=== PATIENT | female | born 1945 | race Caucasian/White ===

== ENCOUNTER 2016-11-25 18:49 | Inpatient (IN) | payer OTHER ==
[~2016-11-25] VITALS: Ht 162.6 cm; Wt 81.6 kg
--- NOTE | ~2016-11-25 | H ---
[facility] [place] [address] HISTORY AND PHYSICAL Name: SUMI GATICA Room #: 451-P [facility] IN M.R.#: [id number] Admission: 11/25/16 Attend Phys: Benita Gonzalez MD Discharge: 11/29/16 Date of : 41 Report #: [id number] THIS REPORT FOR: //name// CC: Benita Gonzalez DATE OF SERVICE: 11/25/2016 CHIEF COMPLAINT: Decreased level of consciousness. HISTORY OF PRESENT ILLNESS: The patient is a 71-year-old female who resides at [facility]. At baseline, she is ambulatory with a walker, oriented times 3 with chronic pain in her lower extremities. She was doing relatively well the morning of admission; however, that evening, she was found to have decreased level of consciousness and a fever of 101. She was brought to [facility] emergency department evaluation where workup revealed findings consistent with acute cystitis and early sepsis with acute encephalopathy, fever, tachycardia and leukocytosis. She was started on IV antibiotics. She was also found to have hemoglobin 7.2 and was transfused with 2 units of packed red cells. She was started on IV fluids. She has been admitted for further medical management. PAST MEDICAL HISTORY: Chronic kidney disease stage III with baseline BUN of about 40, creatinine about 2, diabetes mellitus type 2 with neuropathy, hypertension, atrial fibrillation, history of lower GI bleed, but reported negative upper and lower endoscopy as well as videoscope, chronic dependent edema, iron deficiency anemia, and hypothyroid. ALLERGIES: No known drug allergies. MEDICATIONS: Lasix 80 mg daily, Levemir 15 units subq b.i.d., lispro 12 units t.i.d., triamcinolone cream applied to affected areas twice a day, levothyroxine 25 mcg daily, Amitiza 24 mcg b.i.d., MiraLax 17 grams b.i.d., probiotic one tablet b.i.d., albuterol nebulized treatments q.i.d., Protonix 40 mg daily, Zofran 4 mg q. 6 hours p.r.n., nitroglycerin 0.5 mg sublingual every 5 minutes as needed, Lidoderm patch 5% applied topically to her low back on the morning ____, gabapentin 400 mg t.i.d., ferrous sulfate 325 mg b.i.d., Cardizem-CD 120 mg daily, Plavix 75 mg daily, Lipitor 20 mg at bedtime, vitamin D 1000 units daily and aspirin 81 mg daily. FAMILY HISTORY: Noncontributory. SOCIAL HISTORY: She is , resides at [facility] and does not use tobacco or alcohol. REVIEW OF SYSTEMS: GENERAL: She is able to feed herself with occasional complaints of [address] [address] HISTORY AND PHYSICAL Name: SUMI GATICA Room #: 451-P DIS IN M.R.#: [id number] Admission: 11/25/16 Attend Phys: Benita Gonzalez MD Discharge: 11/29/16 Date of : 41 Report #: [id number] extremity pain. HEENT: Negative. PULMONARY: Denies cough or shortness of breath. CARDIOVASCULAR: Has chronic edema, but no chest pains or palpitations. GASTROINTESTINAL: Negative. GENITOURINARY: Negative. MUSCULOSKELETAL: At baseline, she is ambulatory with a walker and has pain in her lower legs. PHYSICAL EXAMINATION: GENERAL: The patient is a frail, elderly female lying in bed in no apparent distress. VITAL SIGNS: Reveal temperature 99.9, pulse of 100, respiratory rate 22, blood pressure 132/49. HEENT: Head is normocephalic, atraumatic. Pupils are equal and reactive. Extraocular muscles are intact. Oropharynx is moist. NECK: Supple. Trachea midline. LUNGS: Grossly clear to auscultation. CARDIOVASCULAR: Irregularly irregular. ABDOMEN: Soft, nontender, nondistended with normoactive bowel sounds. SKIN: Warm and dry. Turgor adequate. LYMPHATICS: No cervical or axillary lymphadenopathy. NEUROLOGIC: She is awake, alert, oriented to self, but recognized me as her physician. She has no focal neurologic deficit or lateralizing signs. MUSCULOSKELETAL: Reveals diminished, but equal and symmetric strength throughout. ____ noted. 1+ edema in both upper and lower extremities. ASSESSMENT: 1. Sepsis with fever, tachycardia, leukocytosis and acute encephalopathy. 2. Acute encephalopathy, most likely due to acute infection. 3. Acute cystitis. LABORATORY DATA: On her labs, mentioned that her BUN is 66, creatinine is 2.5, glucose is 200. BNP is 7079, which is about baseline for her. C-reactive protein is 36.9. INR is 1.1. WBC 11.3, hemoglobin 7.2, hematocrit 21.4. The urinalysis shows blood 3+, leukocyte esterase 2+, WBC many, bacteria many, RBC few. ASSESSMENT: 1. Sepsis with fever, tachycardia, leukocytosis and acute encephalopathy. 2. Acute encephalopathy, most likely due to acute infection. 3. Acute cystitis. 4. Acute blood loss anemia from recent dental extraction. 5. Generalized anasarca after being transfused and receiving IV fluids. 6. Chronic kidney disease stage 3. 7. Diabetes mellitus type [address] [place] [address] HISTORY AND PHYSICAL Name: SUMI GATICA Room #: 451-P [facility] IN M.R.#: [id number] Admission: 11/25/16 Attend Phys: Benita Gonzalez MD Discharge: 11/29/16 Date of : 41 Report #: [id number] 8. Hypertension. 9. Chronic atrial fibrillation. 10. Hypothyroidism. PLAN: Admission. We will discontinue IV fluids at this time and will give IV Lasix given findings of general anasarca, will continue Merrem, we will follow up urine and blood culture, we will initiate physical therapy, we will resume home medications except for aspirin and Plavix, we will give heparin for DVT prophylaxis. Continue Merrem. We will follow her labs and start sliding scale insulin with Accu-Cheks q.i.d. <ELECTRONICALLY SIGNED> By: Benita Gonzalez MD 12/31/16 1933 1025 1313 Benita Gonzalez MD /nt
--- NOTE | ~2016-11-25 | EKG ---
[address] [address] [facility] [place] [address] ELECTROCARDIOGRAM REPORT Name: SUMI GATICA Room #: 451-P ADM IN M.R.#: [id number] Admission: 11/25/16 Attend Phys: Benita Gonzalez MD Discharge: Date of : 41 Report #: [id number] THIS REPORT FOR: //name// [facility] ED Test Date: 2016-11-25 Test Time: 19:05:26 Pat Name: SUMI GATICA Department: Room: [facility] Gender: F Plastic Joint Maker: MZOOK : 1945 Requested By: Manas Teague Order Number: [id number] MD: Jamie Justin Measurements Intervals [place] Rate: 102 P: [place]: QRS: 86 QRSD: 83 T: -88 QT: 433 QTc: 565 Interpretive Statements Atrial fibrillation Borderline low voltage, extremity leads Nonspecific ST and T wave abnormality No previous ECG available for comparison Electronically Signed On 11-29-2016 8:09:46 TAB CARD PRESS OPERATOR by Jamie Justin [email or web address] <ELECTRONICALLY SIGNED> By: Jamie Justin MD, [facility] 11/29/16 0809 D: 12/1904 04 Jamie Justin MD, FACC /EPI
[~2016-11-25 18:49] MED LIST: LASIX 80 MG TAB80 MG PO
[2016-11-25 18:51] VITALS: BP 114/79
[2016-11-25 19:17] LABS: URINE BILIRUBIN NEGATIVE (Negative); URINE BLOOD 3+ (Negative); URINE COLOR YELLOW; URINE GLUCOSE-RANDOM* NEGATIVE (Negative); URINE KETONES NEGATIVE (Negative); URINE NITRITE NEGATIVE (Negative); URINE PROTEIN (DIPSTICK) TRACE (Negative); URINE UROBILINOGEN 0.2 E.U./dl (0.2-1.0)
[2016-11-25 19:22] LABS: SQUAMOUS 0-3 Few /LPF (0-3); URINE WBC >25 Many /HPF (0-5)
[2016-11-25 19:23] LABS: BACTERIA >30 Many /HPF (None Seen); CASTS None Seen /LPF (None Seen); CRYSTALS None Seen /LPF (None Seen); URINE RBC 3-10 Few /HPF (0-2)
[2016-11-25 19:40] LABS: BASOPHILS 0.1 % (0.0-2.0); MCV 90.4 fL (80.0-100.0)
[2016-11-25 19:42] LABS: EOSINOPHILS 0.7 % (0.0-3.0); HEMATOCRIT 21.4 % (37.0-47.0); MCH 30.5 pg (26.0-34.0); MCHC 33.7 % (28.0-37.0); MONOCYTES 4.7 % (1.0-8.0); PLATELET COUNT 183 thou/uL (150-400); POLYS 88.5 % (36.0-66.0); RBC 2.37 mil/uL (4.20-5.00); RDW 16.6 % (10.5-14.5); WBC 11.3 thou/uL (4.0-11.0)
[2016-11-25 19:44] LABS: MANUAL DIFF NO
[2016-11-25 19:45] LABS: HEMOGLOBIN 7.2 gm/dL (12.0-15.0)
[2016-11-25 19:52] LABS: ANION GAP 11 mmol/L (7-16); BUN 56 mg/dL (7-18); CALCIUM 8.4 mg/dL (8.5-10.1); CHLORIDE 103 mmol/L (98-107); CO2 23 mmol/L (21-32); CREATININE 2.5 mg/dL (0.6-1.3); GLUCOSE 111 mg/dL (70-99); POTASSIUM 4.2 mmol/L (3.5-5.1); SODIUM 137 mmol/L (136-145)
[2016-11-25 20:05] LABS: ALBUMIN 3.4 g/dL (3.4-5.0); ALKALINE PHOSPHATASE 126 U/L (46-116); MAGNESIUM 2.4 mg/dL (1.8-2.4); NT-PRO BRAIN NAT PEPTIDE 7079 pg/mL (<300); SGOT 10 U/L (15-37); SGPT 10 U/L (30-65); TOTAL BILIRUBIN 0.4 mg/dL (<0.1-1.0); TOTAL PROTEIN 6.5 g/dL (6.4-8.2); TROPONIN-I < 0.04 ng/mL (<0.04-0.07)
[2016-11-25 20:11] LABS: CK-MB MASS 0.9 ng/mL (<0.5-3.6)
[2016-11-25] MEDS ORDERED: ALBUTEROL2.5 MG/0.5 INH (20:31)
[2016-11-25] MEDS ORDERED: ALPHAGAN P10 ML OPHTHALMIC (20:32)
[2016-11-25] MEDS ORDERED: AMITIZA 24 MCG24 MC1 PO (20:33)
[2016-11-25] MEDS ORDERED: ANECREAM 4% KI1 EACH TP (20:34)
[2016-11-25] MEDS ORDERED: LIORESAL 10 MG10 MG PO (20:34)
[2016-11-25] MEDS ORDERED: ASPIR 8181 MG PO (20:34)
[2016-11-25] MEDS ORDERED: PLAVIX 75 MG TA75 M1 PO (20:36)
[2016-11-25] MEDS ORDERED: IRON325 PO (20:36)
[2016-11-25] MEDS ORDERED: BETIMOL15 ML OPHTHALMIC (20:36)
[2016-11-25] MEDS ORDERED: CARDIZEM CD120 MG PO (20:36)
[2016-11-25] MEDS ORDERED: VITAMIN D1000 UNI1 PO (20:36)
[2016-11-25] MEDS ORDERED: GLYCOLAX255 GM PO (20:37)
[2016-11-25] MEDS ORDERED: GABAPENTIN 100100 MG PO (20:37)
[2016-11-25] MEDS ORDERED: HUMALOG100 UNIT/1 SUBQ (20:38)
[2016-11-25] MEDS ORDERED: HYDROXYZINE HCL25 M1 PO (20:39)
[2016-11-25] MEDS ORDERED: HYDROCODONE-AP1 EAC6 PO (20:39)
[2016-11-25] MEDS ORDERED: LASIX 80 MG TAB80 MG PO (20:40)
[2016-11-25] MEDS ORDERED: LEVEMIR SUBQ (20:40)
[2016-11-25] MEDS ORDERED: LEVOTHYROXINE0.05 MG PO (20:41)
[2016-11-25] MEDS ORDERED: LIDODERM 5%1 PATC1 TRANSDERM (20:41)
[2016-11-25] MEDS ORDERED: LIPITOR 20 MG T20 M1 PO (20:41)
[2016-11-25] MEDS ORDERED: CLOTRIMAZOLE-BE15 GM TOP (20:43)
[2016-11-25] MEDS ORDERED: MILK OF MA2400 MG/10 PO (20:44)
[2016-11-25] MEDS ORDERED: MIRALAX17 GM PO (20:44)
[2016-11-25] MEDS ORDERED: NORCO 10-325 T1 EACH PO (20:46)
[2016-11-25] MEDS ORDERED: PROBIOTIC1 EAC1 PO (20:46)
[2016-11-25] MEDS ORDERED: NITROGLYCERIN0.4 MG SUBLING (20:46)
[2016-11-25] MEDS ORDERED: PROTONIX40 M1 PO (20:47)
[2016-11-25] MEDS ORDERED: TRIAMCINOLONE A80 G2 TOP (20:47)
[2016-11-25] MEDS ORDERED: TRUSOPT5 ML OPHTHALMIC (20:48)
[2016-11-25] MEDS ORDERED: TYLENOL325 MG PO (20:48)
[2016-11-25] MEDS ORDERED: ONDANSETRON HCL4 M2 PO (20:49)
[2016-11-25] MEDS ORDERED: XALATAN2.5 ML OPHTHALMIC (20:49)
[2016-11-25 21:09] LABS: APTT 32.8 Seconds (24.5-32.8); INR 1.1; PROTIME 11.6 Seconds (9.3-11.4)
[2016-11-25 21:35] VITALS: BP 123/72
[2016-11-25 23:06] VITALS: BP 121/77; BP 99/42
[2016-11-25 23:30] VITALS: BP 99/58
[2016-11-26 01:17] VITALS: BP 126/49; BP 130/44
[2016-11-26 03:15] VITALS: BP 130/44
[2016-11-26 03:39] LABS: HEMATOCRIT 28.9 % (37.0-47.0); MCHC 33.2 % (28.0-37.0); MCV 87.5 fL (80.0-100.0); RBC 3.3 mil/uL (4.20-5.00); RDW 18.5 % (10.5-14.5); WBC 10.7 thou/uL (4.0-11.0)
[2016-11-26 03:43] LABS: HEMOGLOBIN 9.6 gm/dL (12.0-15.0)
[2016-11-26 03:55] LABS: CALCIUM 7.9 mg/dL (8.5-10.1); CREATININE 2.2 mg/dL (0.6-1.3); POTASSIUM 4.4 mmol/L (3.5-5.1); TOTAL BILIRUBIN 0.8 mg/dL (<0.1-1.0); TROPONIN-I 0.09 ng/mL (<0.04-0.07)
[2016-11-26 07:03] VITALS: BP 132/49
[2016-11-26 11:30] VITALS: BP 114/69
[2016-11-26 15:26] VITALS: BP 149/75
[2016-11-26 19:11] VITALS: BP 150/76
[2016-11-27 04:46] VITALS: BP 140/61
[2016-11-27 05:52] LABS: HEMATOCRIT 26.1 % (37.0-47.0); HEMOGLOBIN 8.7 gm/dL (12.0-15.0); MCH 29.2 pg (26.0-34.0); MCHC 33.4 % (28.0-37.0); MCV 87.4 fL (80.0-100.0); RBC 2.99 mil/uL (4.20-5.00); WBC 6.5 thou/uL (4.0-11.0)
[2016-11-27 06:00] LABS: CALCIUM 8.4 mg/dL (8.5-10.1); CREATININE 1.7 mg/dL (0.6-1.3); POTASSIUM 3.6 mmol/L (3.5-5.1)
[2016-11-27 07:19] VITALS: BP 118/76
[2016-11-27 19:12] VITALS: BP 119/66
[2016-11-28 03:59] VITALS: BP 98/42
[2016-11-28 04:28] LABS: HEMATOCRIT 26.6 % (37.0-47.0); HEMOGLOBIN 8.8 gm/dL (12.0-15.0); MCH 28.8 pg (26.0-34.0); MCHC 33.2 % (28.0-37.0); MCV 86.7 fL (80.0-100.0); RBC 3.06 mil/uL (4.20-5.00); RDW 18.7 % (10.5-14.5); WBC 5.8 thou/uL (4.0-11.0)
[2016-11-28 07:09] VITALS: BP 126/52
[2016-11-28 12:16] VITALS: BP 139/67
[2016-11-28 15:46] VITALS: BP 135/64
[2016-11-28 19:25] VITALS: BP 16/62
[2016-11-28] MEDS ORDERED: BACTRIM DS TAB1 EACH PO (23:41)
[2016-11-29 03:45] VITALS: BP 118/56
[2016-11-29 05:37] LABS: HEMATOCRIT 27.6 % (37.0-47.0); HEMOGLOBIN 8.9 gm/dL (12.0-15.0); MCH 28.9 pg (26.0-34.0); MCHC 32.4 % (28.0-37.0); MCV 89.3 fL (80.0-100.0); RBC 3.09 mil/uL (4.20-5.00); RDW 18.4 % (10.5-14.5)
[2016-11-29 05:43] LABS: CALCIUM 8.3 mg/dL (8.5-10.1)
[2016-11-29 09:07] VITALS: BP 107/65
[2016-11-29 11:52] VITALS: BP 109/56
[2016-11-29] MEDS ORDERED: LASIX 80 MG TAB80 MG PO (12:22)
== END 2016-11-29 15:52 | DRG 871 ==
LOC: ER 18:49 → EROBS 20:34 → 4W 20:34
PROVIDERS: Emergency Medicine; Internal Medicine
PROC: 30233N1 Transfusion of Nonautologous Red Blood Cells into Peripheral Vein, Percutaneous Approach (ICD-10-PCS; principal; 2016-11-25)
PROC: 05HB33Z Insertion of Infusion Device into Right Basilic Vein, Percutaneous Approach (ICD-10-PCS; 2016-11-26)
PROC: B54MZZA Ultrasonography of Right Upper Extremity Veins, Guidance (ICD-10-PCS; 2016-11-26)
DX: A41.9 Sepsis, unspecified organism (principal); G93.40 Encephalopathy, unspecified; D62 Acute posthemorrhagic anemia; N17.9 Acute kidney failure, unspecified; N30.00 Acute cystitis without hematuria; I13.0 Hypertensive heart and chronic kidney disease with heart failure and stage 1 through stage 4 chronic kidney disease, or unspecified chronic kidney disease; L03.115 Cellulitis of right lower limb; E11.40 Type 2 diabetes mellitus with diabetic neuropathy, unspecified; I48.2 Chronic atrial fibrillation; B96.20 Unspecified Escherichia coli [E. coli] as the cause of diseases classified elsewhere; D50.9 Iron deficiency anemia, unspecified; I25.10 Atherosclerotic heart disease of native coronary artery without angina pectoris; N18.3 Chronic kidney disease, stage 3 (moderate); I50.9 Heart failure, unspecified; E03.9 Hypothyroidism, unspecified; E11.22 Type 2 diabetes mellitus with diabetic chronic kidney disease; E78.00 Pure hypercholesterolemia, unspecified; G89.29 Other chronic pain; H40.9 Unspecified glaucoma; K21.9 Gastro-esophageal reflux disease without esophagitis; Z87.440 Personal history of urinary (tract) infections; Z88.5 Allergy status to narcotic agent; Z79.899 Other long term (current) drug therapy; Z88.1 Allergy status to other antibiotic agents; Z88.8 Allergy status to other drugs, medicaments and biological substances
CPT/HCPCS: 10040; 27000

== ENCOUNTER 2016-12-03 11:06 | Inpatient (IN) | payer OTHER ==
[~2016-12-03] VITALS: Ht 147.3 cm; Wt 65.4 kg
--- NOTE | ~2016-12-03 | EKG ---
[address] [place] [address] ELECTROCARDIOGRAM REPORT Name: SUMI GATICA Room #: 448-P ADM IN M.R.#: [id number] Admission: 12/03/16 Attend Phys: Herson Avery MD Discharge: Date of : 41 Report #: [id number] THIS REPORT FOR: //name// [facility] ED Test Date: 2016-12-03 Test Time: 11:10:35 Pat Name: SUMI GATICA Department: Room: [facility] Gender: F Candy Spreader: jennifer : 1945 Requested By: Blaine Quevedo Order Number: [id number] MD: Jamie Justin Measurements Intervals [place] Rate: 104 P: [place]: QRS: 92 QRSD: 86 T: 262 QT: 352 QTc: 463 Interpretive Statements Atrial fibrillation Right axis deviation Low voltage, extremity leads Nonspecific T abnormalities Compared to ECG 11/25/2016 19:05:26 No significant change was found Electronically Signed On 12-04-2016 14:18:39 UNIVERSAL GRINDER SET UP OPERATOR by Jamie Justin [email or web address] <ELECTRONICALLY SIGNED> By: Jamie Justin MD, [facility] 12/04/16 1418 1110 1110 Jamie Justin MD, [facility] /EPI
--- NOTE | ~2016-12-03 | H ---
[facility] [place] [address] HISTORY AND PHYSICAL Name: SUMI GATICA Room #: 448-P [facility] IN M.R.#: [id number] Admission: 12/03/16 Attend Phys: Benita Gonzalez MD Discharge: 12/13/16 Date of : 41 Report #: [id number] THIS REPORT FOR: //name// CC: Benita Avery DATE OF SERVICE: 12/03/2016 CHIEF COMPLAINT: Fever, myalgias, abdominal pain and cough. HISTORY OF PRESENT ILLNESS: Information is obtained from the hospital record and small amount of the information from the patient herself. She has a history of having 6 teeth pulled within 1-2 weeks ago, and becoming septic as a result. Several days ago, she had 2 more teeth pulled, now presents with the fever and nausea and vomiting. She reports full body aches and rated her pain as 10/10 and states "it hurt all over." She reports having abdominal pain and cough for the last several days. PAST MEDICAL HISTORY: She was admitted on 11/25/2016 and discharge on 11/29/2016 for sepsis with fever, tachycardia, and acute encephalopathy that were caused by E. coli and acute cystitis. Other past medical history is significant for chronic kidney disease, stage 3 with a baseline BUN of 40 and creatinine around 2, type 2 diabetes with neuropathy, hypertension, atrial fibrillation, history of lower GI bleed with a reported negative upper and lower endoscopy as well as capsule endoscopy, chronic dependent edema, iron deficiency anemia, and hyperthyroidism. ALLERGIES: None known. MEDICATIONS: Lasix 80 mg daily, Levemir 15 units twice daily, lispro 12 units 3 times daily with meals, triamcinolone cream to affected areas twice daily, levothyroxine 0.025 mg daily, Amitiza 24 mg twice daily, MiraLax 17 g twice daily, probiotic 1 twice daily. DuoNeb nebulizer treatments 4 times daily, Protonix 40 mg daily, Zofran 4 mg every 6 hours as needed, nitroglycerin sublingually as needed, Lidoderm patch to the low back in the morning, gabapentin 400 mg 3 times daily, ferrous sulfate 325 mg twice daily. Cardizem CD 120 mg daily, Plavix 75 mg daily, Lipitor 20 mg at bedtime, vitamin D 1000 units daily, and aspirin 81 mg daily. FAMILY HISTORY: Noncontributory. SOCIAL HISTORY: The patient is and a long-term resident at [facility]. She does not use tobacco, alcohol, nor drugs of abuse. REVIEW OF SYSTEMS: At the time of my examination, she was relatively somnolent, [address] [address] HISTORY AND PHYSICAL Name: SUMI GATICA Room #: 448-P [facility] IN M.R.#: [id number] Admission: 12/03/16 Attend Phys: Benita Gonzalez MD Discharge: 12/13/16 Date of : 41 Report #: [id number] but was arousable and denied any significant problems. Previous records notes she is able to clean herself with occasional complaints of lower leg pain. At baseline, she is ambulatory with walker and has pain in her lower legs. PHYSICAL EXAMINATION: VITAL SIGNS: Blood pressure 103/41, respirations 17, pulse is 91. Telemetry shows atrial fibrillation. GENERAL: She was sleeping with her neck hyperextended, and coughing; she appeared to have upper airway obstruction with her tongue. HEENT: The oropharynx mucosa was dry. There was bruising along the tip of the chin and to the right side of the tip of the chin. This area was tender, and fresh extractions were seen. Otherwise, the neck is short and fat with extensive fatty tissue. LUNGS: Loud upper airway noise is heard throughout anterior and posterior chest. CARDIOVASCULAR: S1 and S2 were normal. ABDOMEN: Soft and nontender, without hepatosplenomegaly or masses, obesity present. EXTREMITIES: There was wimk-kl-kdbwmido edema to the lower legs, with the skin being slightly tight and mild amount of pinkness was present. The skin of the toes was intact. LABORATORY DATA: Her creatinine is 2.1 which is at baseline. BUN is 37, also at baseline. EGFR is 23, which is at baseline. Troponin has been only elevated at 0.73. NT-proBNP is 7975. WBCs are 5.0, but there is a left shift of 90% segmented neutrophils and lymphopenia of 4%. Urinalysis shows blood and leukocyte esterase with many white blood cells and moderate bacteria. Note is made that Bactrim for urinary tract infection is one of her medications at that half-way currently. E. coli cultured from her urine last week on 11/26/2016 was sensitive to trimethoprim sulfa as well as Zosyn. CT scan of the abdomen and pelvis without contrast was degraded from moderate motion artifact. The heart is at the upper limits of normal in size. The liver was mildly nodular suggesting cirrhosis with mild steatosis. The gallbladder has been surgical removed, multiple vascular calcifications are present. The bladder is prominent. Large amount of stool was in the proximal colon. A cystic appearing lesion in left pelvis, 3.4 x 4.3 cm in size is present, and uterus has been surgically removed. Edema of the left pelvic wall was noted suggesting cellulitis. Previous L4-L5 laminectomy with bilateral pedicle screws infusion changes was also noted. [address] [place] [address] HISTORY AND PHYSICAL Name: SUMI GATICA Room #: 448-P [facility] IN M.R.#: [id number] Admission: 12/03/16 Attend Phys: Benita Gonzalez MD Discharge: 12/13/16 Date of : 41 Report #: [id number] ASSESSMENT: 1. Sepsis. Symptoms of pain and nausea and vomiting. 2. Active bladder infection. 3. Currently taking antibiotics for Escherichia coli cystitis diagnosed from urine culture on 11/25/2016. 4. A 4 cm left adnexal area cystic structure-abnormal. 5. Enlarged bladder. 6. Edema of the left pelvic wall seen on CT scan. 7. Liver abnormal by CT: Nodularity margin suggesting cirrhosis along with mild steatosis. 8. Diffuse vascular disease. 9. Possible urinary retention with enlarged bladder on CT scan. 10. Chronic constipation: despite multiple medications there still is a large amount of stool present in the colon. 11. Previous L4-L5 laminectomy. 12. Findings of an exacerbation of chronic obstructive pulmonary disease. 13. Physical examination suggestive of obstructive sleep apnea/airway obstruction when the neck is at full extension. 14. Chronic lower extremity edema. 15. Chronic kidney disease, stage 4. 16. Glaucoma. 17. Hypothyroidism. PLAN: The patient is admitted. Cultures were obtained. Zosyn is administered. Serial troponins will be followed. Martin catheter will be placed to allow for accurate urine output determination. Ultrasound for further evaluation of the abnormal left adnexal structure. The patient is a full code as recorded on her half-way orders. <ELECTRONICALLY SIGNED> By: Herson Avery MD 02/05/17 1942 0124 0324 Herson Avery MD /nt
--- NOTE | ~2016-12-03 | 2DMMODE ---
[facility] [place] [address] 2 D/M-MODE ECHOCARDIOGRAM Name: SUMI GATICA Room #: 448-P [facility] IN M.R.#: [id number] Admission: 12/03/16 Attend Phys: Herson Avery, Discharge: Date of : 41 Date of Service: 12/05/16 1037 Report #: [id number] THIS REPORT FOR: //name// Transthoracic Echocardiography Ordering physician: Geoffrey Lewis MD Referring physician: MD Lisa Streeter Ramilo Senior Systems Analyst: Lupe Garcia Indications/History: HTN, Afib. Hx: Afib, CAD, CHF, DM, HTN, HLP, COPD BP: 149 / HR: 95bpm Height: 58in Weight: 143.7lb 94 Study data: M-mode, complete 2D, complete spectral Doppler, and color Doppler. Location: Bedside. Routine. Image quality was adequate. 2D measurements Normal Normal LVID ED 46.4mm 36-57 IVS ED 11.6mm 6-11 LVID ES 35.9mm 23-40 LVPW ED 11.9mm 6-11 LA volume 30ml/m2 16-28 AoRoot diam 29.2mm 21-37 index ED LVOT diameter 18mm 18-23 Findings: Left ventricle: The cavity size was normal. Wall thickness was increased in a pattern of mild LVH. Systolic function was lownormal. The estimated ejection fraction was in the range of 50%. Right ventricle: The cavity size was normal. Systolic function was mildly reduced. Right atrium: The atrium was mildly dilated. Left atrium: The atrium was mildly dilated. Volume index: 30ml/m2 (S). Aortic valve: Structurally normal valve. Mildly sclerotic leaflets. Doppler: There was no stenosis. Trivial regurgitation. Peak velocity: 160cm/s (S). Peak [facility] [address] [place] [address] 2 D/M-MODE ECHOCARDIOGRAM Name: SUMI GATICA Room #: 448-P [facility] IN [place]#: [id number] Admission: 12/03/16 Attend Phys: Herson Avery, Discharge: Date of : 41 Date of Service: 12/05/16 [facility] Report #: [id number] gradient: 10.2mm Hg (S). Mitral valve: Mildly thickened, mildly calcified leaflets . Doppler: There was no evidence for stenosis. Mild regurgitation. Peak E-wave velocity: 129.1cm/s. Peak gradient: 6.7mm Hg (D). Tricuspid valve: Structurally normal valve. Doppler: There was no evidence for stenosis. Moderate regurgitation directed eccentrically. Regurgitant peak velocity: 260cm/s. Peak RV-RA gradient: 27mm Hg (S). Pulmonic valve: Structurally normal valve. Doppler: There was no evidence for stenosis. Trivial regurgitation. Pericardium: There was no pericardial effusion. Aorta: Aortic root: The aortic root was normal in size. Pulmonary artery: Systolic pressure was estimated to be 38mm Hg. Diastolic function: The study was not technically sufficient to allow evaluation of LV diastolic dysfunction due to atrial fibrillation. Systemic veins: Inferior vena cava: The vessel was normal in size; respirophasic changes in dimension were absent. Conclusions 1. Left ventricle: The cavity size was normal. Wall thickness was increased in a pattern of mild LVH. Systolic function was lownormal. The estimated ejection fraction was in the range of 50%. 2. Right atrium: The atrium was mildly dilated. 3. Left atrium: The atrium was mildly dilated. 4. Aortic valve: Structurally normal valve. Mildly sclerotic leaflets. Trivial regurgitation. 5. Mitral valve: Mildly thickened, mildly calcified leaflets . Mild regurgitation. 6. Pulmonic valve: Trivial regurgitation. 7. Tricuspid valve: Structurally normal valve. Moderate regurgitation directed eccentrically. 8. Pulmonary arteries: Systolic pressure was estimated to be 38mm Hg. [facility] [address] [address] 2 D/M-MODE ECHOCARDIOGRAM Name: SUMI GATICA Room #: 448-P [facility] IN .R.#: [id number] Admission: 12/03/16 Attend Phys: Herson Avery, Discharge: Date of : 41 Date of Service: 12/05/16 1037 Report #: [id number] 9. Inferior vena cava: The vessel was normal in size; respirophasic changes in dimension were absent. <ELECTRONICALLY SIGNED> By: Martin Gabriel MD 12/05/16 1129 1037 1129 Martin Gabriel MD /tim
--- NOTE | ~2016-12-03 | EKG ---
[address] [address] ELECTROCARDIOGRAM REPORT Name: SUMI GATICA Room #: 448-P ADM IN M.R.#: [id number] Admission: 12/03/16 Attend Phys: Herson Avery MD Discharge: Date of : 41 Report #: [id number] THIS REPORT FOR: //name// [facility] Test Date: 2016-12-03 Test Time: 22:38:15 Pat Name: SUMI GATICA Department: Room: 448 Gender: F Kosher Dietary Service Manager: BOGDAN : 1945 Requested By: Herson Avery Order Number: [id number] MD: Jamie Justin Measurements Intervals [place] Rate: 132 P: [place]: QRS: 97 QRSD: 90 T: 261 QT: 323 QTc: 479 Interpretive Statements Atrial fibrillation Ventricular premature complex Right axis deviation Low voltage, extremity leads Nonspecific ST and T wave abnormality No previous ECGs available for comparison Electronically Signed On 12-04-2016 14:29:43 SAFETY MANAGER by Jamie Justin [email or web address] <ELECTRONICALLY SIGNED> By: Jamie Justin MD, [facility] 12/04/16 1429 37 37 Jamie Justin MD, [facility] /EPI
--- NOTE | ~2016-12-03 | HC ---
[facility] [place] [address] CONSULTATION Name: SUMI GATICA Room #: 448-P ADM IN M.R.#: [id number] Admission: 12/03/16 Attend Phys: Benita Gonzalez MD Discharge: Date of : 41 Report #: [id number] THIS REPORT FOR: //name// CC: Benita Avery HISTORY OF PRESENT ILLNESS: The patient is a 71-year-old female who apparently has had 2 recent hospitalizations, readmitted today with some progressive dyspnea, shortness of breath and has had some encephalopathy. She is in AFib with a moderate ventricular response. It looks like she has not been anticoagulated. She has been on aspirin and Plavix in the care home. It is not clear to me why she has been in the care home, but she does seem somewhat debilitated and a marginal historian. She is on aspirin, currently getting piperacillin and morphine sodium. She denies any chest pain. I am asked to evaluate for a troponin of 3. Creatinine is 2.1, baseline looks like it is around 1.7; potassium 4.5. Troponin is 3. BNP is 7975. H and H are 9.1 and 26. This is above with her baseline. It looks like she was hospitalized from the to the and then readmitted. White count is 5. CT of the abdomen and pelvis was obtained; prominent liver, possible cirrhosis, lumbar fusion. Chest x-ray, no acute process. It looks like the original compliant was sepsis due to a teeth pull with prior nausea, vomiting and pain all over. It is not clear to me when these teeth were pulled. She denies any chest pain. The EKG does not have a recurrent injury of additional AFib. PAST MEDICAL HISTORY: Positive for the AFib, although not anticoagulated, may be a risk or benefit issue; some heart failure; diabetes; meningitis; cellulitis; generalized pain syndrome; neuropathy; hypothyroidism; recurrent urinary tracts; coronary artery disease and chronic kidney disease. MEDICATIONS: Also on Lasix, Bactrim, Amitiza, Plavix, diltiazem 120, gabapentin, insulin, hydroxyzine, levothyroxine, atorvastatin, lactobacillus, Protonix and ophthalmic eye drops. ALLERGIES: VANCOMYCIN, FENTANYL and MEPERIDINE. SOCIAL HISTORY: No current alcohol or tobacco. She states she lives in a care home. I do know about the family. REVIEW OF SYSTEMS: Really not obtainable, just chronic pain. She states she may walk with a walker and cannot even really get that clear. PHYSICAL EXAMINATION: GENERAL: She is relatively small and somewhat debilitated. VITAL SIGNS: Pulse 120s to 130s, blood pressure 140/60 and temperature is 101. Probably this may be a physiologic response. HEENT: Eyes reveal no xanthelasmas. Pharynx seems to have dry mucous membranes. [address] [address] CONSULTATION Name: SUMI GATICA Room #: 448-P [facility] IN M.R.#: [id number] Admission: 12/03/16 Attend Phys: Benita Gonzalez MD Discharge: Date of : 41 Report #: [id number] NECK: Shows preserved upstrokes. LUNGS: Clear anteriorly. CARDIAC EXAM: Irregularly irregular, S1, S2. ABDOMEN: Slightly diffusely tender. No rebound. EXTREMITIES: Reveal trace edema, nonpitting. NEUROLOGIC: Nonfocal. SKIN: Warm and dry. Some generalized arthritic changes are noted. ASSESSMENT: 1. Atrial fibrillation with rapid ventricular response, hemodynamically stable. 2. Positive troponin, consistent with a gco-OR-bcuheff elevation myocardial infarction. 3. History of encephalopathy, what looks to be significant generalized debilitation here. 4. Diabetes. 5. Chronic kidney disease. Creatinine clearance is 24. 6. Glaucoma. 7. Neuropathy. 8. Chronic obstructive pulmonary disease. RECOMMENDATIONS AND PLAN: Low creatinine clearance would probably use load that would hold on the Plavix. Use low-dose Lovenox and maybe the risks and benefits of anticoagulation for the AFib are not in her benefit here. We discussed with Dr. Gonzalez and Dr. Avery, who know the patient. I am not sure what is the level of aggressivity here. Certainly, no indication to take her to the catheterization lab. No current acute injury. We will repeat the troponin, obtain an echo in the morning and try to treat her empirically with perhaps beta blockers and nitro paste. We will follow with you. Thank you for asking us to assist in the care of this patient. <ELECTRONICALLY SIGNED> By: Geoffrey Lewis MD, [facility] 12/07/16 0936 [id number] 0830 Geoffrey Lewis MD, FACC /nt
--- NOTE | ~2016-12-03 | EKG ---
[address] [address] ELECTROCARDIOGRAM REPORT Name: SUMI GATICA Room #: 448-P ADM IN M.R.#: [id number] Admission: 12/03/16 Attend Phys: Herson Avery MD Discharge: Date of : 43 Report #: [id number] THIS REPORT FOR: //name// [facility] Test Date: 2016-12-04 Test Time: 07:02:04 Pat Name: SUMI GATICA Department: Room: 448 Gender: F Media Buyer: [email or web address] : 1945 Requested By: Geoffrey Lewis Order Number: [id number] MD: Jamie Justin Measurements Intervals [place] Rate: 92 P: OR: QRS: 83 QRSD: 87 T: 224 QT: 467 QTc: 578 Interpretive Statements Atrial fibrillation Borderline right axis deviation Low voltage, extremity leads Nonspecific ST and T wave abnormality Prolonged QT interval Compared to ECG 11/25/2016 19:05:26 Heart rate has slowed Electronically Signed On 12-04-2016 14:31:44 SUPERVISOR STRIPPING by Jamie Justin [email or web address] <ELECTRONICALLY SIGNED> By: Jamie Justin MD, [facility] 12/04/16 1431 0702 0702 Jamie Justin MD, [facility] /EPI
[~2016-12-03 11:06] MED LIST changes: +ALBUTEROL2.5 MG/0.5 INH; +ALPHAGAN P10 ML OPHTHALMIC; +AMITIZA 24 MCG24 MC1 PO; +ANECREAM 4% KI1 EACH TP; +ASPIR 8181 MG PO; +BACTRIM DS TAB1 EACH PO; +BETIMOL15 ML OPHTHALMIC; +CARDIZEM CD120 MG PO; +CLOTRIMAZOLE-BE15 GM TOP; +GABAPENTIN 100100 MG PO; +GLYCOLAX255 GM PO; +HUMALOG100 UNIT/1 SUBQ; +HYDROCODONE-AP1 EAC6 PO; +HYDROXYZINE HCL25 M1 PO; +IRON325 PO; +LEVEMIR SUBQ; +LEVOTHYROXINE0.05 MG PO; +LIDODERM 5%1 PATC1 TRANSDERM; +LIORESAL 10 MG10 MG PO; +LIPITOR 20 MG T20 M1 PO; +MILK OF MA2400 MG/10 PO; +MIRALAX17 GM PO; +NITROGLYCERIN0.4 MG SUBLING; +NORCO 10-325 T1 EACH PO; +ONDANSETRON HCL4 M2 PO; +PLAVIX 75 MG TA75 M1 PO; +PROBIOTIC1 EAC1 PO; +PROTONIX40 M1 PO; +TRIAMCINOLONE A80 G2 TOP; +TRUSOPT5 ML OPHTHALMIC; +TYLENOL325 MG PO; +VITAMIN D1000 UNI1 PO; +XALATAN2.5 ML OPHTHALMIC
[2016-12-03 11:07] VITALS: BP 106/54
[2016-12-03 11:42] LABS: HEMATOCRIT 26.9 % (37.0-47.0); HEMOGLOBIN 9.1 gm/dL (12.0-15.0); MCH 29.3 pg (26.0-34.0); MCHC 33.9 % (28.0-37.0); MCV 86.4 fL (80.0-100.0); PLATELET COUNT 148 thou/uL (150-400); RBC 3.11 mil/uL (4.20-5.00); RDW 17.3 % (10.5-14.5)
[2016-12-03 11:43] LABS: MANUAL DIFF YES
[2016-12-03 11:52] LABS: URINE BILIRUBIN NEGATIVE (Negative); URINE BLOOD TRACE (Negative); URINE COLOR YELLOW; URINE GLUCOSE-RANDOM* NEGATIVE (Negative); URINE KETONES NEGATIVE (Negative); URINE LEUKOCYTES-REFLEX 1+ (Negative); URINE PROTEIN (DIPSTICK) NEGATIVE (Negative); URINE UROBILINOGEN 0.2 E.U./dl (0.2-1.0)
[2016-12-03 11:54] LABS: CALCIUM 8.3 mg/dL (8.5-10.1); CREATININE 2.1 mg/dL (0.6-1.3); POTASSIUM 4.5 mmol/L (3.5-5.1)
[2016-12-03 12:00] LABS: CASTS None Seen /LPF (None Seen); CRYSTALS None Seen /LPF (None Seen); SQUAMOUS 4-10 Moderate /LPF (0-3); URINE WBC-REFLEX >25 Many /HPF (0-5)
[2016-12-03 12:01] LABS: URINE RBC 3-10 Few /HPF (0-2)
[2016-12-03 12:02] LABS: ALBUMIN 3.4 g/dL (3.4-5.0); TOTAL BILIRUBIN 0.4 mg/dL (<0.1-1.0); TOTAL PROTEIN 6.5 g/dL (6.4-8.2)
[2016-12-03 12:04] LABS: TROPONIN-I 0.73 ng/mL (<0.04-0.07)
[2016-12-03 12:22] LABS: ABSOLUTE NEUTROPHILS 4.5 thou/uL (1.4-8.2); ANISOCYTOSIS 1+; TOTAL CELL COUNT 100
[2016-12-03 18:00] VITALS: BP 119/49
[2016-12-03 18:34] VITALS: BP 161/72
[2016-12-03 21:10] VITALS: BP 144/67
[2016-12-04] VITALS (7 sets, daily range): BP systolic 110–142; BP diastolic 47–74
[2016-12-05 04:35] VITALS: BP 140/69
[2016-12-05 05:30] VITALS: BP 142/68
[2016-12-05 05:32] LABS: ABSOLUTE NEUTROPHILS 2.5 thou/uL (1.4-8.2); BASOPHILS 0.2 % (0.0-2.0); EOSINOPHILS 0.5 % (0.0-3.0); HEMATOCRIT 24.5 % (37.0-47.0); HEMOGLOBIN 8.1 gm/dL (12.0-15.0); LYMPHOCYTES 23.7 % (24.0-44.0); MCHC 33.1 % (28.0-37.0); MCV 87.5 fL (80.0-100.0); MONOCYTES 9.1 % (1.0-8.0); PLATELET COUNT 136 thou/uL (150-400); POLYS 66.5 % (36.0-66.0); RDW 17.9 % (10.5-14.5); WBC 3.8 thou/uL (4.0-11.0)
[2016-12-05 06:05] LABS: MANUAL DIFF NO
[2016-12-05 06:06] LABS: CALCIUM 7.7 mg/dL (8.5-10.1); CREATININE 2.3 mg/dL (0.6-1.3); POTASSIUM 4.3 mmol/L (3.5-5.1); TOTAL BILIRUBIN 0.5 mg/dL (<0.1-1.0); TOTAL PROTEIN 6.2 g/dL (6.4-8.2)
[2016-12-05 09:19] VITALS: BP 149/94
[2016-12-05 12:57] VITALS: BP 144/70
[2016-12-05 17:17] VITALS: BP 135/77
[2016-12-05 20:30] VITALS: BP 139/66
[2016-12-06 05:22] VITALS: BP 121/52
[2016-12-06 06:21] LABS: HEMATOCRIT 24.4 % (37.0-47.0); MCH 29.1 pg (26.0-34.0); MCHC 32.6 % (28.0-37.0); MCV 89.2 fL (80.0-100.0); RBC 2.74 mil/uL (4.20-5.00); RDW 17.9 % (10.5-14.5); WBC 4.1 thou/uL (4.0-11.0)
[2016-12-06 06:39] LABS: CALCIUM 7.4 mg/dL (8.5-10.1); CREATININE 2.2 mg/dL (0.6-1.3); POTASSIUM 4.3 mmol/L (3.5-5.1)
[2016-12-06 09:47] VITALS: BP 147/68
[2016-12-06 12:20] VITALS: BP 135/64
[2016-12-06 18:14] VITALS: BP 130/93
[2016-12-06 19:45] VITALS: BP 139/68
[2016-12-07] MEDS ORDERED: AMPICILLIN TRI250 MG PO (01:51)
[2016-12-07] MEDS ORDERED: LOPRESSOR25 PO (01:52)
[2016-12-07 04:50] VITALS: BP 131/65
[2016-12-07 09:07] VITALS: BP 133/64
[2016-12-07 13:24] VITALS: BP 156/77
[2016-12-07 16:51] VITALS: BP 149/84
[2016-12-07 22:55] VITALS: BP 135/50
[2016-12-08 03:55] VITALS: BP 151/70
[2016-12-08 07:43] VITALS: BP 137/52
[2016-12-08 11:38] VITALS: BP 156/63
[2016-12-08 15:51] VITALS: BP 171/81
[2016-12-08 22:23] VITALS: BP 149/49
[2016-12-09 03:57] VITALS: BP 139/48
[2016-12-09 09:02] VITALS: BP 150/66
[2016-12-09 09:16] LABS: HEMOGLOBIN 7.9 gm/dL (12.0-15.0); MCH 28.8 pg (26.0-34.0); MCHC 33.1 % (28.0-37.0); MCV 87.1 fL (80.0-100.0); RBC 2.75 mil/uL (4.20-5.00); RDW 17.7 % (10.5-14.5); WBC 3.5 thou/uL (4.0-11.0)
[2016-12-09 09:26] LABS: CALCIUM 8.8 mg/dL (8.5-10.1); CREATININE 1.4 mg/dL (0.6-1.3); POTASSIUM 4.4 mmol/L (3.5-5.1)
[2016-12-09 09:31] LABS: INR 1.2; PROTIME 12.4 Seconds (9.3-11.4)
[2016-12-09 16:55] VITALS: BP 126/64
[2016-12-09 17:47] VITALS: BP 125/64
[2016-12-09 20:00] VITALS: BP 125/64; BP 133/63
[2016-12-09 21:51] VITALS: BP 155/54
[2016-12-10 05:16] LABS: HEMATOCRIT 29.6 % (37.0-47.0); HEMOGLOBIN 9.6 gm/dL (12.0-15.0); MCH 28.7 pg (26.0-34.0); MCHC 32.5 % (28.0-37.0); MCV 88.1 fL (80.0-100.0); RBC 3.36 mil/uL (4.20-5.00)
[2016-12-10 06:08] VITALS: BP 159/66
[2016-12-10 09:48] VITALS: BP 165/70
[2016-12-10 16:43] VITALS: BP 159/54
[2016-12-10 21:03] VITALS: BP 144/63
[2016-12-11 03:59] VITALS: BP 143/83
[2016-12-11 06:47] LABS: HEMATOCRIT 30.1 % (37.0-47.0); MCH 28.9 pg (26.0-34.0); MCHC 33.4 % (28.0-37.0); MCV 86.7 fL (80.0-100.0); RBC 3.47 mil/uL (4.20-5.00); RDW 16.9 % (10.5-14.5); WBC 4.1 thou/uL (4.0-11.0)
[2016-12-11 06:58] LABS: CALCIUM 8.9 mg/dL (8.5-10.1); CREATININE 1.3 mg/dL (0.6-1.3); POTASSIUM 3.7 mmol/L (3.5-5.1)
[2016-12-11 09:28] VITALS: BP 158/73
[2016-12-11 13:53] VITALS: BP 144/65
[2016-12-11 17:09] VITALS: BP 156/74
[2016-12-11 20:50] VITALS: BP 142/62
[2016-12-12] VITALS (7 sets, daily range): BP systolic 121–151; BP diastolic 52–67
[2016-12-13 04:06] VITALS: BP 152/68
[2016-12-13 08:35] VITALS: BP 149/78
[2016-12-13] MEDS ORDERED: PREDNISONE 10 M10 MG PO (09:07)
[2016-12-13] MEDS ORDERED: LASIX 40 MG TAB40 M2 PO (09:09)
[2016-12-13 12:37] VITALS: BP 141/64
== END 2016-12-13 13:36 | DRG 871 ==
LOC: ER 11:06 → 4S 14:57 → EROBS 14:57 → 4S 18:03
PROVIDERS: Emergency Medicine; Internal Medicine
PROC: 05HB33Z Insertion of Infusion Device into Right Basilic Vein, Percutaneous Approach (ICD-10-PCS; 2016-12-04)
PROC: 30233N1 Transfusion of Nonautologous Red Blood Cells into Peripheral Vein, Percutaneous Approach (ICD-10-PCS; principal; 2016-12-09)
DX: A41.9 Sepsis, unspecified organism (principal); I21.4 Non-ST elevation (NSTEMI) myocardial infarction; G93.41 Metabolic encephalopathy; N39.0 Urinary tract infection, site not specified; N17.9 Acute kidney failure, unspecified; E87.1 Hypo-osmolality and hyponatremia; I13.0 Hypertensive heart and chronic kidney disease with heart failure and stage 1 through stage 4 chronic kidney disease, or unspecified chronic kidney disease; D62 Acute posthemorrhagic anemia; E78.00 Pure hypercholesterolemia, unspecified; G89.29 Other chronic pain; H40.9 Unspecified glaucoma; K21.9 Gastro-esophageal reflux disease without esophagitis; E03.9 Hypothyroidism, unspecified; I50.9 Heart failure, unspecified; I25.10 Atherosclerotic heart disease of native coronary artery without angina pectoris; K59.09 Other constipation; B95.2 Enterococcus as the cause of diseases classified elsewhere; J44.9 Chronic obstructive pulmonary disease, unspecified; E11.65 Type 2 diabetes mellitus with hyperglycemia; E11.22 Type 2 diabetes mellitus with diabetic chronic kidney disease; E11.40 Type 2 diabetes mellitus with diabetic neuropathy, unspecified; N18.3 Chronic kidney disease, stage 3 (moderate); Z79.2 Long term (current) use of antibiotics; Z88.8 Allergy status to other drugs, medicaments and biological substances; Z88.1 Allergy status to other antibiotic agents; Z79.899 Other long term (current) drug therapy; Z79.82 Long term (current) use of aspirin; Z79.02 Long term (current) use of antithrombotics/antiplatelets; I48.2 Chronic atrial fibrillation
CPT/HCPCS: 10100; 27000

== ENCOUNTER 2018-01-22 09:28 | Emergency (ER) | payer OTHER ==
[~2018-01-22] VITALS: Ht 149.9 cm; Wt 60.3 kg
[~2018-01-22 09:28] MED LIST changes: +AMPICILLIN TRI250 MG PO; +LASIX 40 MG TAB40 M2 PO; +LOPRESSOR25 PO; +PREDNISONE 10 M10 MG PO
[2018-01-22 10:52] LABS: CREATININE 1.5 mg/dL (0.6-1.0); POTASSIUM 4.1 mmol/L (3.5-5.1)
[2018-01-22 10:59] LABS: ABSOLUTE NEUTROPHILS 4.3 thou/uL (1.4-8.2); BASOPHILS 0.5 % (0.0-2.0); EOSINOPHILS 3.7 % (0.0-3.0); HEMATOCRIT 28.4 % (37.0-47.0); HEMOGLOBIN 9.5 gm/dL (12.0-15.0); LYMPHOCYTES 17.1 % (24.0-44.0); MCHC 33.4 g/dL (28.0-37.0); MCV 89.9 fL (80.0-100.0); MONOCYTES 6.2 % (1.0-8.0); PLATELET COUNT 147 thou/uL (150-400); POLYS 72.5 % (36.0-66.0); RBC 3.16 mil/uL (4.20-5.00); RDW 16.7 % (10.5-14.5); WBC 5.9 thou/uL (4.0-11.0)
[2018-01-22 11:03] LABS: URINE BILIRUBIN NEGATIVE (Negative); URINE BLOOD 3+ (Negative); URINE GLUCOSE-RANDOM* 1+ (Negative); URINE KETONES NEGATIVE (Negative); URINE NITRITE-REFLEX NEGATIVE (Negative); URINE PROTEIN (DIPSTICK) 1+ (Negative); URINE UROBILINOGEN 0.2 E.U./dl (0.2-1.0)
[2018-01-22 11:06] LABS: URINE COLOR LT RED; URINE LEUKOCYTES-REFLEX 2+ (Negative)
[2018-01-22 11:07] LABS: URINE CLARITY SL CLOUDY
[2018-01-22] MEDS ORDERED: LIPITOR10 MG PO (11:09)
[2018-01-22] MEDS ORDERED: WELLBUTRIN 75 M75 M1 PO (11:09)
[2018-01-22] MEDS ORDERED: HUMALIN SUBQ ×2 (11:13→11:14)
[2018-01-22] MEDS ORDERED: IRON325 PO (11:14)
[2018-01-22] MEDS ORDERED: LASIX 80 MG TAB80 MG PO (11:15)
[2018-01-22] MEDS ORDERED: CLARITIN10 MG PO (11:16)
[2018-01-22] MEDS ORDERED: CENTRUM SILVER1 EAC4 PO (11:17)
[2018-01-22] MEDS ORDERED: NEURONTIN 300300 M1 PO (11:18)
[2018-01-22 11:19] LABS: CASTS None Seen /LPF (None Seen); MUCUS 0-3 Light strn/LPF (None Seen); SQUAMOUS 0-3 Few /LPF (0-3)
[2018-01-22] MEDS ORDERED: OMEPRAZOLE 20 M20 M1 PO (11:19)
[2018-01-22] MEDS ORDERED: PROBIOTIC1 EAC1 PO (11:19)
[2018-01-22 11:20] LABS: BACTERIA-REFLEX 1-9 Few /HPF (None Seen); CRYSTALS None Seen /LPF (None Seen); URINE RBC >20 Many /HPF (0-2); URINE WBC-REFLEX 6-15 Few /HPF (0-5)
[2018-01-22] MEDS ORDERED: ZOLOFT50 MG PO (11:20)
[2018-01-22] MEDS ORDERED: CEFOXITIN IV (11:48)
[2018-01-22 13:39] VITALS: BP 166/72
== END 2018-01-22 13:41 ==
LOC: ER 09:28
PROVIDERS: Physician Assistant
DX: N39.0 Urinary tract infection, site not specified (principal); R31.9 Hematuria, unspecified; R33.9 Retention of urine, unspecified; E78.00 Pure hypercholesterolemia, unspecified; I48.91 Unspecified atrial fibrillation; K21.9 Gastro-esophageal reflux disease without esophagitis; I25.10 Atherosclerotic heart disease of native coronary artery without angina pectoris; I12.9 Hypertensive chronic kidney disease with stage 1 through stage 4 chronic kidney disease, or unspecified chronic kidney disease; E11.22 Type 2 diabetes mellitus with diabetic chronic kidney disease; N18.9 Chronic kidney disease, unspecified; E03.9 Hypothyroidism, unspecified; I13.0 Hypertensive heart and chronic kidney disease with heart failure and stage 1 through stage 4 chronic kidney disease, or unspecified chronic kidney disease; I50.9 Heart failure, unspecified; Z88.1 Allergy status to other antibiotic agents

== ENCOUNTER 2018-02-12 10:40 | Emergency (ER) | payer OTHER ==
[~2018-02-12] VITALS: Ht 147.3 cm; Wt 59.0 kg
[~2018-02-12 10:40] MED LIST changes: +CEFOXITIN IV; +CENTRUM SILVER1 EAC4 PO; +CLARITIN10 MG PO; +HUMALIN SUBQ; +LIPITOR10 MG PO; +NEURONTIN 300300 M1 PO; +OMEPRAZOLE 20 M20 M1 PO; +WELLBUTRIN 75 M75 M1 PO; +ZOLOFT50 MG PO
[2018-02-12 11:21] LABS: ABSOLUTE NEUTROPHILS 3.1 thou/uL (1.4-8.2); BASOPHILS 0.3 % (0.0-2.0); EOSINOPHILS 3.9 % (0.0-3.0); HEMATOCRIT 30.7 % (37.0-47.0); HEMOGLOBIN 10.1 gm/dL (12.0-15.0); LYMPHOCYTES 19.5 % (24.0-44.0); MCH 30.5 pg (26.0-34.0); MCV 92.3 fL (80.0-100.0); MONOCYTES 8.1 % (1.0-8.0); PLATELET COUNT 123 thou/uL (150-400); POLYS 68.2 % (36.0-66.0); RBC 3.32 mil/uL (4.20-5.00); WBC 4.6 thou/uL (4.0-11.0)
[2018-02-12 11:25] LABS: URINE BILIRUBIN NEGATIVE (Negative); URINE BLOOD NEGATIVE (Negative); URINE CLARITY CLEAR; URINE COLOR YELLOW; URINE GLUCOSE-RANDOM* NEGATIVE (Negative); URINE KETONES NEGATIVE (Negative); URINE LEUKOCYTES 1+ (Negative); URINE NITRITE NEGATIVE (Negative); URINE PROTEIN (DIPSTICK) 1+ (Negative); URINE UROBILINOGEN 0.2 E.U./dl (0.2-1.0)
[2018-02-12 11:28] LABS: CALCIUM 8.8 mg/dL (8.5-10.1); CREATININE 1.4 mg/dL (0.6-1.0); POTASSIUM 4.1 mmol/L (3.5-5.1)
[2018-02-12 11:31] LABS: BACTERIA 1-9 Few /HPF (None Seen); CASTS None Seen /LPF (None Seen); CRYSTALS None Seen /LPF (None Seen); SQUAMOUS 0-3 Few /LPF (0-3); URINE RBC None Seen /HPF (0-2); URINE WBC 6-15 Few /HPF (0-5)
[2018-02-12 11:34] LABS: ALBUMIN 3.5 g/dL (3.4-5.0); DIRECT BILIRUBIN 0.1 mg/dL (<0.1-0.3); TOTAL BILIRUBIN 0.3 mg/dL (<0.1-1.0); TOTAL PROTEIN 6.7 g/dL (6.4-8.2)
[2018-02-12 12:51] VITALS: BP 148/78
== END 2018-02-12 13:15 | disposition home or self-care (01) ==
LOC: ER 10:40
PROVIDERS: Emergency Medicine
DX: R53.1 Weakness (principal); R50.9 Fever, unspecified; E11.9 Type 2 diabetes mellitus without complications; E78.00 Pure hypercholesterolemia, unspecified; K21.9 Gastro-esophageal reflux disease without esophagitis; I25.10 Atherosclerotic heart disease of native coronary artery without angina pectoris; I48.91 Unspecified atrial fibrillation; E03.9 Hypothyroidism, unspecified; I12.9 Hypertensive chronic kidney disease with stage 1 through stage 4 chronic kidney disease, or unspecified chronic kidney disease; N18.9 Chronic kidney disease, unspecified

== ENCOUNTER 2019-09-15 03:33 | Emergency (ER) | payer OTHER ==
[~2019-09-15] VITALS: Ht 147.3 cm; Wt 64.9 kg
[2019-09-15 04:18] LABS: URINE BILIRUBIN NEGATIVE (Negative); URINE BLOOD 1+ (Negative); URINE CLARITY CLEAR; URINE COLOR YELLOW; URINE GLUCOSE-RANDOM* NEGATIVE (Negative); URINE KETONES NEGATIVE (Negative); URINE NITRITE-REFLEX NEGATIVE (Negative); URINE PROTEIN (DIPSTICK) NEGATIVE (Negative); URINE UROBILINOGEN 0.2 E.U./dl (0.2-1.0)
[2019-09-15 04:19] LABS: URINE LEUKOCYTES-REFLEX 3+ (Negative)
[2019-09-15 04:24] LABS: BACTERIA-REFLEX 1-9 Few /HPF (None Seen); CASTS None Seen /LPF (None Seen); CRYSTALS None Seen /LPF (None Seen); MUCUS None Seen strn/LPF (None Seen); SQUAMOUS None Seen /LPF (0-3); URINE RBC 3-10 Few /HPF (0-2)
[2019-09-15] MEDS ORDERED: PROAIR HFA8.5 GM INH (04:51)
[2019-09-15] MEDS ORDERED: SPIRONOLACTONE25 M1 PO (04:52)
[2019-09-15] MEDS ORDERED: BIOFREEZE118 ML TOP (04:53)
[2019-09-15] MEDS ORDERED: KEPPRA XR500 MG PO (04:54)
[2019-09-15] MEDS ORDERED: VANACOF DM LIQ240 ML PO (04:54)
[2019-09-15] MEDS ORDERED: LASIX 40 MG TAB40 MG PO (04:55)
[2019-09-15] MEDS ORDERED: LOPRESSOR50 MG PO (04:56)
[2019-09-15] MEDS ORDERED: KLOR-CON 1010 MEQ PO (04:57)
[2019-09-15] MEDS ORDERED: MUPIROCIN15 GM TOP (04:57)
[2019-09-15] MEDS ORDERED: SEROQUEL 25 MG25 M1 PO ×2 (04:58→04:59)
[2019-09-15] MEDS ORDERED: SERTRALINE HCL100 MG PO (04:59)
[2019-09-15] MEDS ORDERED: VITAMIN B12-FO1 EAC1 PO (05:00)
[2019-09-15 05:08] LABS: ABSOLUTE NEUTROPHILS 4.1 thou/uL (1.4-8.2); BASOPHILS 0.4 % (0.0-2.0); EOSINOPHILS 6.4 % (0.0-3.0); HEMATOCRIT 26.5 % (37.0-47.0); HEMOGLOBIN 8.6 gm/dL (12.0-15.0); LYMPHOCYTES 21.1 % (24.0-44.0); MCH 30.5 pg (26.0-34.0); MCHC 32.5 g/dL (28.0-37.0); MCV 93.8 fL (80.0-100.0); MONOCYTES 6.6 % (1.0-8.0); PLATELET COUNT 139 thou/uL (150-400); POLYS 65.5 % (36.0-66.0); RBC 2.83 mil/uL (4.20-5.00); RDW 16.5 % (10.5-14.5); WBC 6.2 thou/uL (4.0-11.0)
[2019-09-15 05:14] LABS: ANION GAP 6 mmol/L (7-16); BUN 54 mg/dL (7-18); CALCIUM 8.5 mg/dL (8.5-10.1); CHLORIDE 104 mmol/L (98-107); CO2 24 mmol/L (21-32); CREATININE 1.9 mg/dL (0.6-1.0); GLUCOSE 156 mg/dL (74-106); POTASSIUM 5.2 mmol/L (3.5-5.1); SODIUM 134 mmol/L (136-145)
[2019-09-15 05:20] LABS: ALBUMIN 3.5 g/dL (3.4-5.0); DIRECT BILIRUBIN 0.1 mg/dL (<0.1-0.3); SGOT < 5 U/L (15-37); SGPT 12 U/L (30-65); TOTAL BILIRUBIN 0.3 mg/dL (<0.1-1.0); TOTAL PROTEIN 6.5 g/dL (6.4-8.2)
[2019-09-15 07:35] VITALS: BP 133/39
--- NOTE | 2019-09-16 09:14 | EKG ---
[place] [address] [facility] [place] [address] ELECTROCARDIOGRAM REPORT Name: SUMI GATICA [id number] Admission: 09/15/19 Attend Phys: Discharge: 09/15/19 Date of : 41 Report #: [id number] THIS REPORT FOR: //name// [facility] ED Test Date: 2019-09-15 Test Time: 03:41:14 Pat Name: SUMI GATICA Department: Room: Gender: F Operations General Agent: [email or web address] : 1945 Requested By: Fred Balderrama Order Number: [id number] MD: Jamie Justin Measurements Intervals [place] Rate: 71 P: [place]: QRS: 81 QRSD: 87 T: 76 QT: 431 QTc: 469 Interpretive Statements Atrial fibrillation Low voltage, extremity and precordial leads Nonspecific ST segment abnormality Compared to ECG 12/04/2016 07:02:04 No significant change was found Electronically Signed On 09-16-2019 9:14:30 CDT by Jamie Justin [email or web address] <ELECTRONICALLY SIGNED> By: Jamie Justin MD, [facility] 09/16/19 0914 0341 0 Jamie Justin MD, FACC /EPI
== END 2019-09-15 07:35 ==
LOC: ER 03:33
PROVIDERS: Emergency Medicine
DX: R10.84 Generalized abdominal pain (principal); R33.9 Retention of urine, unspecified; I12.9 Hypertensive chronic kidney disease with stage 1 through stage 4 chronic kidney disease, or unspecified chronic kidney disease; E11.22 Type 2 diabetes mellitus with diabetic chronic kidney disease; E78.00 Pure hypercholesterolemia, unspecified; I48.91 Unspecified atrial fibrillation; K21.9 Gastro-esophageal reflux disease without esophagitis; I25.10 Atherosclerotic heart disease of native coronary artery without angina pectoris; E03.9 Hypothyroidism, unspecified; E11.40 Type 2 diabetes mellitus with diabetic neuropathy, unspecified; G89.29 Other chronic pain; Z86.2 Personal history of diseases of the blood and blood-forming organs and certain disorders involving the immune mechanism; Z88.6 Allergy status to analgesic agent; Z88.1 Allergy status to other antibiotic agents; Z88.8 Allergy status to other drugs, medicaments and biological substances

== ENCOUNTER 2020-10-03 11:49 | Inpatient (IN) | payer OTHER ==
[~2020-10-03] VITALS: Ht 152.4 cm; Wt 73.2 kg
[~2020-10-03 11:49] MED LIST changes: -ALPHAGAN P10 ML OPHTHALMIC; +ALPHAGAN P5 ML OPHTHALMIC; +ASA81BEC PO; +AUGMENTIN 875-1 EACH PO; +BIOFREEZE118 ML TOP; +COUGH SYRU100 MG/5 M PO; +DIALYVITE VI1250 MCG PO; +HUMULIN 70/30 SUBQ; +KEPPRA 500 MG500 M1 PO; +KLOR-CON 1010 MEQ PO; +LASIX 40 MG TAB40 MG PO; +LOPRESSOR50 MG PO; +MIRALAX119 GM PO; +MUPIROCIN1 GM TOP; +MUPIROCIN15 GM TOP; -NEURONTIN 300300 M1 PO; +OMEPRAZOLE40 MG PO; +OXYBUTYNIN ER 55 M1 PO; +PHENYTOIN SODI300 MG PO; +PROAIR HFA8.5 GM INH; +SEROQUEL 25 MG25 M1 PO; +SEROQUEL 50 MG50 MG PO; +SERTRALINE HCL100 MG PO; +SPIRONOLACTONE25 M1 PO; +VENTOLIN HFA 1818 GM INH; +VENTOLIN HFA INH8 GM INH; +VIMPAT100 MG PO; +VITAMIN B12-FO1 EAC1 PO; +VITAMIN C500 M1 PO
[2020-10-03 11:51] VITALS: BP 141/81
[2020-10-03 13:37] LABS: URINE BILIRUBIN NEGATIVE (Negative); URINE BLOOD 2+ (Negative); URINE CLARITY CLEAR; URINE COLOR YELLOW; URINE GLUCOSE-RANDOM* 1+ (Negative); URINE KETONES TRACE (Negative); URINE NITRITE-REFLEX NEGATIVE (Negative); URINE PROTEIN (DIPSTICK) 3+ (Negative); URINE UROBILINOGEN 0.2 E.U./dl (0.2-1.0)
[2020-10-03 13:38] LABS: URINE LEUKOCYTES-REFLEX 1+ (Negative)
[2020-10-03 13:45] LABS: AMP/METHAMP Negative (Negative); BARBITURATES Negative (Negative); BENZODIAZEPINES Negative (Negative); COCAINE Negative (Negative); METHADONE Negative (Negative); OPIATES POSITIVE (Negative); PCP Negative (Negative)
[2020-10-03 13:47] LABS: CASTS None Seen /LPF (None Seen); SQUAMOUS 0-3 Few /LPF (0-3); TRIPLE PHOSPHATE CRYSTALS >10 Many /LPF (None Seen); URINE WBC-REFLEX 6-15 Few /HPF (0-5)
[2020-10-03 13:48] LABS: URINE RBC 0-2 Rare /HPF (0-2)
[2020-10-03 14:24] LABS: ABSOLUTE NEUTROPHILS 5.4 thou/uL (1.4-8.2); BASOPHILS 0.1 % (0.0-2.0); HEMATOCRIT 22.1 % (37.0-47.0); LYMPHOCYTES 7.7 % (24.0-44.0); MCHC 31.8 g/dL (28.0-37.0); MCV 84.8 fL (80.0-100.0); MONOCYTES 2.1 % (1.0-8.0); PLATELET COUNT 111 thou/uL (150-400); POLYS 90.1 % (36.0-66.0); RBC 2.61 mil/uL (4.20-5.00); RDW 18.6 % (10.5-14.5)
[2020-10-03 14:32] LABS: CALCIUM 7.9 mg/dL (8.5-10.1); POTASSIUM 3.8 mmol/L (3.5-5.1)
[2020-10-03 14:44] LABS: MAGNESIUM 1.8 mg/dL (1.8-2.4); TROPONIN-I 0.18 ng/mL (<0.06)
[2020-10-03 16:52] VITALS: BP 145/53
[2020-10-03 18:30] VITALS: BP 147/61
[2020-10-03 20:00] VITALS: BP 144/41
[2020-10-04 00:26] VITALS: BP 142/65
--- NOTE | 2020-10-04 03:50 | NUR ---
Admission history and assessments completed. Care plan initated. IV fluids infusing. High fall risks, fall precautions in place.
[2020-10-04 05:17] VITALS: BP 130/52
--- NOTE | 2020-10-04 06:00 | NUR ---
Patient confused and combative. Foot Worker x 2 have attempted to draw blood unsuccesfully. Per Miguelito from lab, will send another regrader to attemt to draw.
[2020-10-04 08:02] VITALS: BP 148/43
[2020-10-04 11:39] VITALS: BP 130/65
[2020-10-04 13:41] LABS: ABSOLUTE NEUTROPHILS 3.1 thou/uL (1.4-8.2); BASOPHILS 0.2 % (0.0-2.0); EOSINOPHILS 0.4 % (0.0-3.0); HEMATOCRIT 22.4 % (37.0-47.0); HEMOGLOBIN 7.1 gm/dL (12.0-15.0); LYMPHOCYTES 23.5 % (24.0-44.0); MCH 26.9 pg (26.0-34.0); MCHC 31.6 g/dL (28.0-37.0); MCV 85.4 fL (80.0-100.0); MONOCYTES 2.8 % (1.0-8.0); POLYS 73.1 % (36.0-66.0); RBC 2.63 mil/uL (4.20-5.00); RDW 18.4 % (10.5-14.5); WBC 4.3 thou/uL (4.0-11.0)
[2020-10-04 13:56] LABS: CALCIUM 8.1 mg/dL (8.5-10.1); CREATININE 1.7 mg/dL (0.6-1.0); POTASSIUM 3.5 mmol/L (3.5-5.1)
[2020-10-04 13:59] LABS: ALBUMIN 2.9 g/dL (3.4-5.0); DIRECT BILIRUBIN 0.2 mg/dL (<0.1-0.2); TOTAL BILIRUBIN 0.4 mg/dL (0.2-1.0)
[2020-10-04 15:01] LABS: PLATELET COUNT 98 thou/uL (150-400)
[2020-10-04 15:24] VITALS: BP 118/51
--- NOTE | 2020-10-04 18:16 | NUR ---
SSUMED PATIENT CARE AT 0700. A/O X3 VERY HARD HEARING. C/O LOWER BACK PAIN. AFEBRILE. VSS. STANDBY ASSITED TO CHAIR. SLOWLY TOWATDS POC GOALS.
[2020-10-04 19:32] VITALS: BP 119/57
[2020-10-05 04:29] VITALS: BP 138/73
--- NOTE | 2020-10-05 05:14 | NUR ---
Patient making progress towards outcome goals. More alert, oriented to preson and place. Able to verbalize needs. Very hard of hearing. Vital signs and rhythm stable. Afebrile. IVfluids infusing. Good urine output, foul smelling. High fall risks, fallm precautions in place.
[2020-10-05 06:31] LABS: HEMOGLOBIN 6.8 gm/dL (12.0-15.0); WBC 3.2 thou/uL (4.0-11.0)
[2020-10-05 06:33] LABS: HEMATOCRIT 21.4 % (37.0-47.0); MCH 26.8 pg (26.0-34.0); MCHC 31.6 g/dL (28.0-37.0); MCV 84.9 fL (80.0-100.0); RBC 2.52 mil/uL (4.20-5.00); RDW 18.6 % (10.5-14.5)
[2020-10-05 06:56] LABS: CALCIUM 7.7 mg/dL (8.5-10.1); CREATININE 1.7 mg/dL (0.6-1.0); POTASSIUM 3.5 mmol/L (3.5-5.1); TROPONIN-I 0.19 ng/mL (<0.06)
--- NOTE | 2020-10-05 07:38 | EKG ---
[facility] [place] [address] ELECTROCARDIOGRAM REPORT Name: SUMI GATICA Room #: 352- ADM IN M.R.#: [id number] Admission: 10/03/20 Attend Phys: Jairo Walker MD Discharge: Date of : 41 Report #: [id number] THIS REPORT FOR: cc: Benita Gonzalez MD, Ramilo MD Lundgren,Jamie Freedman MD [facility] ~ THIS REPORT FOR: //name// [facility] ED Test Date: 2020-10-03 Test Time: 13:12:13 Pat Name: SUMI GATICA Department: Room: [facility] Gender: F Perioperative Assistant: [facility] : 1945 Requested By: Fred Balderrama Order Number: [id number] MD: Jamie Justin Measurements Intervals [place] Rate: 117 P: [place]: QRS: 89 QRSD: 98 T: 255 QT: 303 QTc: 423 Interpretive Statements Atrial fibrillation Nonspecific ST and T wave abnormality Compared to ECG 06/06/2020 11:30:40 Nonspecific change in the ST and T wave segments Electronically Signed On 10-05-2020 7:37:57 FELT HAT STEAMER by Jamie Justin [email or web address] <ELECTRONICALLY SIGNED> By: Jamie Justin MD, [facility] 10/05/20 0737 1312 1312 Jamie Justin MD, [facility] /EPI
[2020-10-05 08:36] VITALS: BP 125/67
--- NOTE | 2020-10-05 09:26 | NUR ---
WOUND CARE; DUE TO COVID PRECAUTIONS AND ISOLATION, LIMITED ASSESSMENT, PHOTO ON CHART, REVIEWED W/ INSTRUCTOR OF NURSING BHAVNA, SMALL CLOSED WOUND R LOWER LEG ~1CM, NO DRAINAGE, NO S/S INFECTION RECOMMENDATIONS; LEAVE OPEN TO AIR, IF DRAINING APPLY BORDER FOAM DRSG, IF EDEMA PRESENT APPLY TUBIGRIP STOCKING, INSTRUCTOR OF NURSING AWARE
--- NOTE | 2020-10-05 13:26 | NUR ---
WOUND CARE F/U; THE RN ASKED ME TO SEE THIS PATIENT TODAY. THE RIGHT HEEL HAS A DTI. THE AREA IS BRUISED AND STABLE. TODAY IT ONLY NEEDS A PRAFO BOOT AND WE WILL APPLY BIATERALLY. NO S/S OF INFECTION. THE PATIENT SAYS IT FEELS MUCH BETTER WITH THE BOOT. RN PRESENT
[2020-10-05 15:29] VITALS: BP 149/79
--- NOTE | 2020-10-05 16:27 | NUR ---
INITIAL ASSESSMENT: YADI reviewed chart and spoke with nursing and attending physician. Pt was admitted from [place] [facility] due to sepsis/UTI. Pt placed in Enhanced Isolation due to COVID-19. Pt had positive test on 10/03. Pt with hx of COVID in May of this year. Pt is afebrile and not requiring O2. PT is on IV abx. Pt with hx of dementia. YADI spoke with pt's friend/contact, Jos Bland. Introduced role of YADI. Pt is in shelter care at [facility]. Pt is w/c bound and plan is for pt to return to [facility]. Pt does not have family and Jos has been her point of contact. YADI updated [place] post-acute liaison. Will fax clinical info to the facility for review tomorrow. YADI is following to assist as needed with discharge planning.
--- NOTE | 2020-10-05 19:15 | NUR ---
ASSUMED PATIENT CARE AT 0700. ALERT. VSS. WILL RECEIVED ONE UNIT RBC TONIGHT. GENERLIZED EDEMA 2+. SLOWLY TOWARDS POC GOALS.
[2020-10-05 20:40] VITALS: BP 155/70
[2020-10-05 21:10] VITALS: BP 167/76; BP 176/78
[2020-10-06 05:06] LABS: HEMATOCRIT 27.3 % (37.0-47.0); MCH 28.1 pg (26.0-34.0); MCHC 32.3 g/dL (28.0-37.0); MCV 86.9 fL (80.0-100.0); RBC 3.14 mil/uL (4.20-5.00); RDW 17.4 % (10.5-14.5); WBC 3.3 thou/uL (4.0-11.0)
[2020-10-06 05:13] LABS: HEMOGLOBIN 8.8 gm/dL (12.0-15.0)
[2020-10-06 05:25] LABS: CALCIUM 7.8 mg/dL (8.5-10.1); CREATININE 1.7 mg/dL (0.6-1.0); POTASSIUM 3.7 mmol/L (3.5-5.1)
--- NOTE | 2020-10-06 07:26 | NUR ---
ASSUMED PT CARE AROUND 1930. AXOX1-2 INTERMITTENT CONFUSION. VSS. 1 UNIT BLOOD TRANSFUSED. TOLERATED WELL. NO S/S ACUTE DISTRESS NOTED OR REPORTED AT THIS TIME. CARE TRANSFEERED TO INCOMING RN AT THIS TIME.
[2020-10-06 07:32] VITALS: BP 132/67
[2020-10-06 15:04] VITALS: BP 136/66
--- NOTE | 2020-10-06 16:04 | NUR ---
YADI reviewed chart and spoke with nursing and attending physician. Pt remains in Enhanced Isolation due to COVID-19. Pt is afebrile and not requiring O2. Pt is on IV abx. Pt had blood transfusion yesterday. YADI faxed clinical/therapy info to [facility] for review. Plan is for pt to return to [place] when medically stable. YADI is following to assist as needed with discharge planning.
--- NOTE | 2020-10-06 18:53 | NUR ---
Patient stays a-fib, HR controled, no chest pain, no soa. tolerated food well, no n/v.
[2020-10-06 21:26] VITALS: BP 142/72
--- NOTE | 2020-10-07 05:41 | NUR ---
Pt. rested quietly at short intervals during the night when checked on during frequent rounds. She has been incontinent of loose stool with foul odor present. Unable to obtain sample as stool absorbed into the chux. Angie care was given. Pt. turned and repositioned. She kept moaning out in pain and c/o generalized pain. Po pain med given (see emar) with some relief noted. Bed alarm is on.
[2020-10-07 05:49] LABS: MCV 87.6 fL (80.0-100.0); RDW 17.8 % (10.5-14.5)
[2020-10-07 05:52] LABS: HEMATOCRIT 30.8 % (37.0-47.0); HEMOGLOBIN 9.7 gm/dL (12.0-15.0); MCH 27.6 pg (26.0-34.0); MCHC 31.5 g/dL (28.0-37.0); RBC 3.52 mil/uL (4.20-5.00); WBC 4.8 thou/uL (4.0-11.0)
[2020-10-07 06:07] LABS: CALCIUM 7.7 mg/dL (8.5-10.1); CREATININE 1.5 mg/dL (0.6-1.0); POTASSIUM 4.1 mmol/L (3.5-5.1)
[2020-10-07 07:07] VITALS: BP 131/52
--- NOTE | 2020-10-07 09:53 | NUR ---
WOUND CARE F/U; THE RIGHT LE AND TIGHT HEEL AREAS ARE HEALED AT THIS TIME. INTERMITTENT DRAINING RE; LE EDEMA CONTROL. NO OTHER CONCERNS. RECOMMENDATIONS; CONTINUE TO USE PRAFO BOOTS RN PRESENT
--- NOTE | 2020-10-07 11:31 | NUR ---
DISCHARGE NOTE: SW reviewed chart and spoke with nursing and attending physician. Pt remains in Enhanced Isolation due to COVID-19. Pt is afebrile and not requiring O2. Pt is medically stable for discharge back to [facility] today. SW updated [place] post-acute liaison. Wheelchair van transportation scheduled for [id number] per facility's arrangements. SW notified attending physician of transportation time. Awaiting finalized discharge orders/summary. SW left voice message for pt's friend, Jos Bland, to notify of pt's discharge. Chart copy requested. Nursing provided with number to call report. SW is following to finalize discharge.
[2020-10-07] MEDS ORDERED: CEFDINIR300 MG PO ×2 (13:36→13:37)
[2020-10-07] MEDS ORDERED: VITAMIN D325 MC1 PO (13:36)
[2020-10-07] MEDS ORDERED: VITAMIN B-1100 M2 PO (13:36)
[2020-10-07] MEDS ORDERED: VITAMINC500 PO (13:36)
[2020-10-07] MEDS ORDERED: ZINC SULFATE 2220 MG PO (13:36)
[2020-10-07] MEDS ORDERED: NOVOLOG100 UNIT/1 SUBQ (13:45)
--- NOTE | 2020-10-07 15:03 | HC ---
[facility] [place] [address] CONSULTATION Name: SUMI GATICA Room #: 352-P [facility] IN M.R.#: [id number] Admission: 10/03/20 Attend Phys: Jairo Walker MD Discharge: 10/07/20 Date of : 43 Report #: [id number] THIS REPORT FOR: cc: Benita Gonzalez MD, Ramilo MD Barry, Joseph W. MD ~ DATE OF SERVICE: 10/04/2020 INFECTIOUS DISEASE CONSULTATION ATTENDING PHYSICIAN: Dr. Walker. REASON FOR EVALUATION: COVID-19 infection with marked encephalopathy and high-grade fevers. HISTORY OF PRESENT ILLNESS: Chart reviewed, patient examined. This is a 75-year-old woman, who is some degree impaired, lives in a facility with extensive medical history including diabetes mellitus, has cardiomyopathy, congestive heart failure, apparently experienced seizures and hallucinations as well, was admitted through the Emergency Room with lethargy and marked encephalopathy. At the time of initial presentation, she was unable to give any answers. Currently, she is markedly uncomfortable. She states she hurts particular her low back as well as her abdomen, it is difficult to redirect her. Evaluation noted chest x-ray changes with cardiomegaly, prominent interstitial pulmonary opacities. Urinalysis with moderate pyuria. Lactic acid 1.6. Initial coronavirus antigen testing was negative; however, PCR testing was positive. Blood cultures are sterile thus far. She was empirically started on therapy with ceftriaxone, given a dose of aztreonam as well as linezolid. ALLERGIES: LISTED TO FENTANYL, MEPERIDINE, VANCOMYCIN. CURRENT MEDICATIONS: Include aspirin, heparin, insulin, gabapentin, metoprolol, atorvastatin and ceftriaxone. PAST MEDICAL HISTORY: As noted above, history of diabetes mellitus, hypertension, atrial fibrillation, cardiomyopathy, congestive heart failure, constipation, chronic pain syndrome, esophagitis with reflux, anemia, history of UTIs, hyperlipidemia, vasculopathy, renal disease, neuropathy, hypothyroidism, seizures, hallucinations, dementia, rheumatoid arthritis, COPD, schizophrenia, low back pain, restless leg syndrome, history of hepatitis C, COVID positive in April. SOCIAL HISTORY: Nonsmoker, no ethanol. [facility] [address] [place] [address] CONSULTATION Name: SUMI GATICA Room #: 352-P DIS IN ..#: [id number] Admission: 10/03/20 Attend Phys: Jairo Walker MD Discharge: 10/07/20 Date of : 43 Report #: [id number] FAMILY HISTORY: Noncontributory. REVIEW OF SYSTEMS: Not obtainable. PHYSICAL EXAMINATION: GENERAL: She is in moderate to marked distress. It is difficult to examine her. She seems to hurt even with ____ does not involve significant palpation, crying out in pain. She appears chronically ill, undernourished. VITAL SIGNS: Temperature 103 yesterday, more recently 98.1; pulse 89; respirations 20; blood pressure 130/65; and saturations 100%. NECK: Appears to be supple. LUNGS: Few coarse breath sounds. HEART: Irregular. I do not appreciate a murmur. ABDOMEN: Perhaps tender. There are no overt peritoneal signs. Low back is exquisitely tender by her reaction. GENITOURINARY AND RECTAL: Deferred. LABORATORY DATA: As described above. CT of the head, no acute process. Lactic acid 1.6. Electrolytes: Sodium ____, potassium 3.8, chloride 102, bicarbonate 22, anion gap of 14, BUN and creatinine 49 and 2.0, glucose of 390. Estimated GFR of 24. CBC: White count 6.0, H and H 7.0 and 22.1, platelets of 111. Urinalysis did show moderate pyuria. Blood cultures are sterile thus far. ASSESSMENT: Febrile illness. The patient is difficult to obtain a good history and physical from certainly exhibits evidence of a pain. We will attempt to do some additional imaging and laboratory. We will adjust antimicrobial therapy as needed. Continue ceftriaxone for now. If indeed the blood cultures are positive, would be concerned about distal focus of seeding. At this point, I think it is unlikely that she was reinfected with coronavirus given apparently positive test back in April. ____ risk for aspiration pneumonitis. We will give a dose of vancomycin, pending further results of cultures given her tenuous state. <ELECTRONICALLY SIGNED> By: Landon Hernandez MD 10/07/20 1503 1152 1234 Landon Hernandez MD /nt
--- NOTE | 2020-10-07 16:07 | NUR ---
PATIENT DISCHARGED AT THIS TIME TO [facility]. REPORT CALLED. ASSISTED TO W/C FOR W/C EMMETT RAY. NO COMPLAIN AT TIME OF DISCHARGE.
== END 2020-10-07 14:04 | DRG 871 ==
LOC: ER 11:49 → EROBS 18:00 → 3W 18:00
PROVIDERS: Emergency Medicine; Specialist; ADMIT Hospitalist; ATTEND Hospitalist
PROC: 30233N1 Transfusion of Nonautologous Red Blood Cells into Peripheral Vein, Percutaneous Approach (ICD-10-PCS; principal; 2020-10-05)
DX: A41.9 Sepsis, unspecified organism (principal); N17.0 Acute kidney failure with tubular necrosis; G93.41 Metabolic encephalopathy; U07.1 COVID-19; T83.518A Infection and inflammatory reaction due to other urinary catheter, initial encounter; F01.51 Vascular dementia, unspecified severity, with behavioral disturbance; I42.9 Cardiomyopathy, unspecified; L03.115 Cellulitis of right lower limb; I13.0 Hypertensive heart and chronic kidney disease with heart failure and stage 1 through stage 4 chronic kidney disease, or unspecified chronic kidney disease; I69.354 Hemiplegia and hemiparesis following cerebral infarction affecting left non-dominant side; D61.818 Other pancytopenia; I48.91 Unspecified atrial fibrillation; I50.9 Heart failure, unspecified; K59.00 Constipation, unspecified; K21.9 Gastro-esophageal reflux disease without esophagitis; E78.5 Hyperlipidemia, unspecified; I25.10 Atherosclerotic heart disease of native coronary artery without angina pectoris; N18.30 Chronic kidney disease, stage 3 unspecified; E11.22 Type 2 diabetes mellitus with diabetic chronic kidney disease; E11.40 Type 2 diabetes mellitus with diabetic neuropathy, unspecified; E03.9 Hypothyroidism, unspecified; M06.9 Rheumatoid arthritis, unspecified; J44.9 Chronic obstructive pulmonary disease, unspecified; G25.81 Restless legs syndrome; G89.4 Chronic pain syndrome; R41.0 Disorientation, unspecified; G40.909 Epilepsy, unspecified, not intractable, without status epilepticus; D64.9 Anemia, unspecified; M54.5 Low back pain; Y83.8 Other surgical procedures as the cause of abnormal reaction of the patient, or of later complication, without mention of misadventure at the time of the procedure; N30.90 Cystitis, unspecified without hematuria; B96.4 Proteus (mirabilis) (morganii) as the cause of diseases classified elsewhere; Z79.4 Long term (current) use of insulin; Z79.82 Long term (current) use of aspirin; Z79.899 Other long term (current) drug therapy; Z86.19 Personal history of other infectious and parasitic diseases; Z88.1 Allergy status to other antibiotic agents; Z88.8 Allergy status to other drugs, medicaments and biological substances; Y92.89 Other specified places as the place of occurrence of the external cause
CPT/HCPCS: 10879

== ENCOUNTER 2020-10-18 00:11 | Inpatient (IN) | payer OTHER ==
[~2020-10-18] VITALS: Ht 157.5 cm; Wt 68.0 kg
[2020-10-18] VITALS (7 sets, daily range): BP systolic 10–149; BP diastolic 31–58
--- NOTE | ~2020-10-18 | HC ---
[facility] [place] [place] [address] CONSULTATION Name: SUMI GATICA Room #: 460-P ADM IN M.R.#: [id number] Admission: 10/18/20 Attend Phys: Rory De Anda Discharge: Date of : 41 Report #: [id number] THIS REPORT FOR: cc: Benita Gonzalez MD, Ramilo MD Al-Absi,Maryjane Michaels MD ~ REASON FOR CONSULTATION: Elevated creatinine. REASON FOR PRESENTATION: Lower extremity swelling. HISTORY OF PRESENT ILLNESS: I am not able to obtain any meaningful history from this patient. She is hard of hearing and very confused. She carries a diagnosis of CHF, diabetes mellitus, hypertension, CKD with a baseline creatinine of around 1.7. The patient was diagnosed in her nursing facility to have COVID-19. She is known to have neurogenic bladder, status post suprapubic catheter. She presented because of worsening lower extremity edema, increased shortness of breath. Urine sample revealed some proteinuria, hematuria with white blood cells; however, this was obtained from her suprapubic catheter. I was asked to assess for potential nephritis. Unfortunately, as stated above, the patient is very hard of hearing and not able to provide me with any history. PAST MEDICAL HISTORY: 1. History of diabetes mellitus. 2. AFib. 3. CKD. 4. Hypothyroidism. 5. Seizure disorder. 6. Neurogenic bladder, post suprapubic catheter. ALLERGIES: LISTED FENTANYL, MEPERIDINE, VANCOMYCIN. MEDICATIONS: 1. Metoprolol. 2. Gabapentin. 3. Hydrocodone. SOCIAL HISTORY: Unable to obtain given the patient's current mental status, but she came from a nursing facility. FAMILY HISTORY: Unable to obtain given the patient's current mental status. REVIEW OF SYSTEMS: Unable to obtain given the patient's current mental status. PHYSICAL EXAMINATION: GENERAL: She is very hard of hearing. [facility] [address] [place] [address] CONSULTATION Name: SUMI GATICA Room #: 460-P [facility] IN .R.#: [id number] Admission: 10/18/20 Attend Phys: Rory De Anda Discharge: Date of : 41 Report #: [id number] VITAL SIGNS: Blood pressure is 146/72, temperature is 36.8. HEAD AND NECK: No jugular venous distention. CHEST: No crackles. CARDIOVASCULAR: No rub detected. ABDOMEN: Soft. There is a suprapubic catheter. EXTREMITIES: Lower extremities, +2 edema. LABORATORY VALUES: White blood cell count is 2.8, hemoglobin is 8.6, platelet is 93. Chemistry from today revealed a sodium of 136, potassium of 5.8, BUN of 51, creatinine of 2.3, phosphorus of 5.4. UA from the suprapubic catheter loaded with blood cells and white cells along with proteinuria. IMPRESSION AND PLAN: 1. Acute kidney injury. 2. Chronic kidney disease. 3. Status post suprapubic catheter. 4. Multiple other comorbid conditions. 5. Unfortunately, the patient's urinary sample is not that accurate given the fact that it was obtained from the suprapubic catheter. I doubt that this patient has any nephritis. She does have chronic kidney disease with what seems to be stones on her renal ultrasound. Her baseline creatinine seems to be around 2.0 based on previous values. At this point, I would focus on managing her edema with local measures, salt restrictions. 6. Continue to monitor kidney function. 7. Very gentle oral torsemide once a day. 8. Cardiac echo if needed. 9. No further workup is needed for her current urinary finding. By: 0800 08 Maryjane Frausto MD /nt
[~2020-10-18 00:11] MED LIST changes: +CEFDINIR300 MG PO; +NOVOLOG100 UNIT/1 SUBQ; +VITAMIN B-1100 M2 PO; +VITAMIN D325 MC1 PO; +VITAMINC500 PO; +ZINC SULFATE 2220 MG PO
[2020-10-18 00:50] LABS: ABSOLUTE NEUTROPHILS 1.5 thou/uL (1.4-8.2); BASOPHILS 0.5 % (0.0-2.0); EOSINOPHILS 4.2 % (0.0-3.0); HEMATOCRIT 23.8 % (37.0-47.0); HEMOGLOBIN 7.5 gm/dL (12.0-15.0); LYMPHOCYTES 43.4 % (24.0-44.0); MCH 27.8 pg (26.0-34.0); MCHC 31.6 g/dL (28.0-37.0); MCV 87.9 fL (80.0-100.0); MONOCYTES 5.2 % (1.0-8.0); PLATELET COUNT 101 thou/uL (150-400); POLYS 46.7 % (36.0-66.0); RBC 2.71 mil/uL (4.20-5.00); RDW 20.1 % (10.5-14.5); WBC 3.2 thou/uL (4.0-11.0)
[2020-10-18 00:54] LABS: CALCIUM 8.1 mg/dL (8.5-10.1); CREATININE 2.4 mg/dL (0.6-1.0); POTASSIUM 5.1 mmol/L (3.5-5.1)
[2020-10-18 01:02] LABS: BE(vivo) -6.2 mmol/L (-2 to +3); HCO3 17.5 mmol/L (22.0-26.0); PCO2 27.9 mmHg (35.0-45.0); PO2 206.4 mmHg (80.0-100.0); pH 7.415 (7.360-7.450); sO2 99.4 % (92.0-98.0)
[2020-10-18 01:02] LABS: TROPONIN-I 0.33 ng/mL (<0.06)
[2020-10-18 01:40] LABS: URINE BILIRUBIN NEGATIVE (Negative); URINE BLOOD 3+ (Negative); URINE CLARITY CLOUDY; URINE COLOR YELLOW; URINE GLUCOSE-RANDOM* NEGATIVE (Negative); URINE KETONES NEGATIVE (Negative); URINE NITRITE-REFLEX NEGATIVE (Negative); URINE PROTEIN (DIPSTICK) 3+ (Negative); URINE SPECIFIC GRAVITY >= 1.030 (1.005-1.035); URINE UROBILINOGEN 0.2 E.U./dl (0.2-1.0)
[2020-10-18 01:42] LABS: URINE LEUKOCYTES-REFLEX 2+ (Negative)
[2020-10-18 01:51] LABS: BACTERIA-REFLEX >30 Many /HPF (None Seen); CASTS None Seen /LPF (None Seen); CRYSTALS None Seen /LPF (None Seen); MUCUS 4-6 Moderate strn/LPF (None Seen); SQUAMOUS None Seen /LPF (0-3); URINE RBC >20 Many /HPF (0-2); URINE WBC-REFLEX >25 Many /HPF (0-5); WBC CLUMPS Packed (None Seen); YEAST-REFLEX Present (None Seen)
[2020-10-18] MEDS ORDERED: VITAMIN C500 M2 PO (03:39)
[2020-10-18] MEDS ORDERED: HEPARIN SO5000 UNIT2 SUBQ (03:41)
[2020-10-18] MEDS ORDERED: HUMALOG100 UNIT/1 SUBQ (03:42)
[2020-10-18] MEDS ORDERED: HYDROCODON-ACE1 EAC7 PO (03:42)
[2020-10-18] MEDS ORDERED: TIMOLOL MALEATE5 M2 OPHTHALMIC (03:43)
--- NOTE | 2020-10-18 06:52 | NUR ---
ADMISSION NOTE. PT ARRIVED AT 0630, SHE IS FROM [facility]. SHE IS CONFUSED , BUT EASILY AROUSABLE. PER REPORT SHE HAS HAD SORE THROAT AND SHORT OF BREATH,REQUIRING 3 LITERS OF OXYGEN. ORIENTED TO ROOM AND SURROUNDINGS. RESTING QUIETLY AT THIS TIME
--- NOTE | 2020-10-18 19:00 | NUR ---
PATIENT NOW SLEEPING AND RESPITRATIONS ARE NON LABORED. SHE IS QUITE RESTLESS IN BED. NOT EASILY REDIRECTED. SHE DENIES PAIN. LEGS AND ARMS ERYTHEMATOUS. INCONT OF BOWEL. WILL CONT WITH PLAN OF CARE.
--- NOTE | 2020-10-19 02:07 | NUR ---
pt continually shouting, not cooperative at taking medications. haldol ordered x1 1.5 mg. 24 hour urine collection started at 10/19/20 @0200. signage on doorway. iv antibiotics continue. careplan reviewed.
[2020-10-19 04:00] VITALS: BP 98/70
[2020-10-19 06:11] LABS: HEMATOCRIT 26.9 % (37.0-47.0); HEMOGLOBIN 8.6 gm/dL (12.0-15.0); MCHC 32.1 g/dL (28.0-37.0); MCV 87.2 fL (80.0-100.0); RBC 3.09 mil/uL (4.20-5.00); RDW 20.5 % (10.5-14.5); WBC 2.8 thou/uL (4.0-11.0)
[2020-10-19 06:32] LABS: ALBUMIN 3.2 g/dL (3.4-5.0); CALCIUM 8.4 mg/dL (8.5-10.1); CREATININE 2.4 mg/dL (0.6-1.0); POTASSIUM 5.2 mmol/L (3.5-5.1); TOTAL BILIRUBIN 0.4 mg/dL (0.2-1.0); TOTAL PROTEIN 6.9 g/dL (6.4-8.2)
--- NOTE | 2020-10-19 07:12 | EKG ---
[facility] [place] [address] ELECTROCARDIOGRAM REPORT Name: SUMI GATICA Room #: 355-P ADM IN M.R.#: [id number] Admission: 10/18/20 Attend Phys: Rory De Anda Discharge: Date of : 41 Report #: [id number] THIS REPORT FOR: cc: Benita Gonzalez MD, Ramilo MD Santiago,Miguelito GAYLE [facility] ~ THIS REPORT FOR: //name// [facility] ED Test Date: 2020-10-18 Test Time: 01:01:21 Pat Name: SUMI GATICA Department: Room: [facility] Gender: F Machine Adjuster Leader: vahe littlejohn : 1945 Requested By: Fred Balderrama Order Number: [id number] MD: Miguelito Holly Measurements Intervals [place] Rate: 78 P: [place]: QRS: 84 QRSD: 96 T: QT: 596 QTc: 680 Interpretive Statements Atrial fibrillation Low voltage, extremity and precordial leads Prolonged QT interval Baseline wander in lead(s) V4 Compared to ECG 10/03/2020 13:12:13 Low QRS voltage now present Prolonged QT interval now present ST (T wave) deviation no longer present Electronically Signed On 10-19-2020 7:12:37 INJECTOR ASSEMBLER by Miguelito Holly [email or web address] <ELECTRONICALLY SIGNED> By: Miguelito Holly MD, FACC 10/19/20711 0 0 Miguelito Holly MD, [facility] /EPI
--- NOTE | 2020-10-19 08:44 | NUR ---
WOUND CONSULT; THIS PATIENT HAS NO WOUNDS. THE RIGHT 2ND AND 3RD TOES LOOK BRUISED. BILATERAL LE'S AND FEET ARE WARM. THERE IS NO APPARENT CELLULITIS TO THE BILATERAL LE'S ONLY S/S OF A HISTORY OF EDEMA TO THE LOWER EXTREMITIES, WITH FLAKEY DRY SKIN. RECOMMENDATIONS; 1-GET PRAFO BOOTS PHIL. 2-TURN THIS PATIENT Q2H 3-VENKATA A LOW AIRLOSS PUMP. DISCUSSED WITH RADHA
--- NOTE | 2020-10-19 10:51 | NUR ---
PT CARE ASSUMED AT 0700, PT ALERT AND ORIENTED X1, DISROIENTED TO TIME, SITUATION AND PLACE. PT DENIES ANY NAUSEA AND VOMITTING. COMPLAINS OF GENERALIZED PAIN, ESPECIALLY IN THE LOWER EXTREMITIES. PT ABD IS HARD, DISTENDED, HAS A SUPAPUBIC CATHETER IN PLACE, PATENT AND SECURED. BLE SKIN CRACKED AND CHAPPED, WOUND CARE CONSULTED. FALL PRECAUTION IN PLACE. WILL CONTINUE TO MONITOR.
[2020-10-19 15:00] VITALS: BP 79/26
--- NOTE | 2020-10-19 15:14 | NUR ---
PT BP ON THE RIGHT ARM WAS 79/26, CHECKED ON LEFT ARM 104/21.HR 70 PT ALERT, NO SIGNS OF DISTRESS NOTED. PAGE DR. RENEE TWICE WAITING FOR RESPONSE.
[2020-10-19 15:18] VITALS: BP 104/21; BP 59/49
[2020-10-19 16:50] VITALS: BP 82/57
[2020-10-19 17:57] VITALS: BP 107/77
[2020-10-19 19:40] VITALS: BP 130/53
[2020-10-20] VITALS: BP 152/55
--- NOTE | 2020-10-20 02:29 | NUR ---
RECEIVED IN BED SLEEPING. VSS. OFF ISO. TRANSFERRED TO 4W VIA BED. REPORT GIVEN TO MARIA INES ON 4W. 24HR URINE COLLECTION ENDORSED AND COLLECTION BOTTLE WAS TRNASFERRED WITH PT. ALL BELONGINGS SENT WITH PT. LEFT THE FLOOR IN STABLE CONDITOIN.
[2020-10-20 06:12] LABS: ALBUMIN 2.9 g/dL (3.4-5.0); CALCIUM 7.9 mg/dL (8.5-10.1); CREATININE 2.3 mg/dL (0.6-1.0); PHOSPHORUS 5.4 mg/dL (2.5-4.9); POTASSIUM 5.8 mmol/L (3.5-5.1)
[2020-10-20 07:38] VITALS: BP 143/82
[2020-10-20 08:14] LABS: URINE POTASSIUM-mEq/L 21.3 mmol/L
[2020-10-20 08:15] LABS: URINE PROTEIN (MG/DL) 166.1 mg/dL
--- NOTE | 2020-10-20 13:40 | NUR ---
PT ADMITTED RELATED TO ANASARCA, MECHELLE, UTI, ELEVATED TROP, R/O COVID. CM REVIEWED CHART AND SPOKE WITH CARE TEAM. CM ATTEMPTED PC TO PT'S FRIEND DEMARIO SMITH. CM LEFT VM. IT APPEARS FROM CHART REVIEW AND SPEAKING WITH RW LIAISON THAT PT IS LTC RESIDENT AT [facility]. PT HAD BEEN WHEELCHAIR BOUND [employer]IFIC[employer] WORK[employer]. FACILITY LIAISON INDICATED THAT THEY ARE ABLE TO ACCEPET PT BACK ONCE MEDICALLY STABLE. PHYSICIAN INDICATED THAT NEPHROLOGY WAS CONSULTED. PHYSICIAN INDICATED THAT ONCE PT IS SEEN AND STARTED ON MEDS PT MAY BE MEDICALLY STABLE TO DC BACK TO FACILITY TOMORROW. CM NOTIFIED RW LIAISON. SHE IS AWARE AND FOLLOWING. CM TO FOLLOW INDICATED WITH DC PLANNING.
--- NOTE | 2020-10-20 14:10 | NUR ---
Nutrition: pt admitted with anasarca, MECHELLE, UTI, elevated troponin. PMH: CHF, DM, CKD3, dysphagia, schizophrenia. Unable to obtain any information during interview, pt just moaning. ST has evaled and placed pt on pureed diet with nectar thick liquids. Is edentulous. Allowing Glucerna as supplement. Low duke score. BLE dry cracked skin with left leg weeping-wound care consult. Current weight up 20# from usual this past summer. On lasix, vitamin D, thiamine, zinc sulfate, SSI. BG 113-161, K 5.8. phos 5.4. PO variable from refusal to 60% past 48 hrs. Would recommend consider adding renal to diet order if po intakes consistently > 50% of meals. Carb controlled restriction not indicated at present. Low nutrition risk with interventions in place.
--- NOTE | 2020-10-20 15:59 | NUR ---
VASCULAR ACCESS CONSULTED FOR PIV. PT HAS GENERALIZED EDEMA WITH DEEP VESSELS, 2 1/2 IN CATH ATTEMPTED IN GIOVANNY, UNSUCESSFUL. PIV PLACED R SHOULDER AREA. RADHA RN NOTIFIED IF ADDITIONAL ACCESS NEEDED, PT WILL NEED TO GO TO IR
[2020-10-20 16:05] VITALS: BP 120/58
--- NOTE | 2020-10-20 19:44 | NUR ---
Alert and orientated X1. Pupils unequal and briskly reactive. Pt. repeatedly calling staff "Maral". When given orange juice she stated she couldn't have d/t being diabetic. Many other coherent statements. Calm and compliant except for repeatedly pulling out IVs and taking off FIO2. Breath sounds clear. Reg even spontaneous resp on 2L FiO2. Reg HR auscultated. Color pale pink with brisk capillary refill and palpable peripheral pulses. Clear yellow urine per suprapubic catheter. Active bowel sounds over large, full abdomen. 4 large bowel movements, brown-green and loose t/o day. Buttocks reddened, zpaste applied to protect skin. Multiple bruises over body with hematomas X2 at previous IV sites. Pulled out IV per R upper arm. #22 g placed per R shoulder, pulled out at approximately 1830. Oozing per multiple puncture sites over body. Significant edema in lower body to feet. Lower legs dry and cracked with multiple sores, cleaned and prescribed lotion applied. Ate poorly for lunch despite encouragement. BG 47 and then 48 at approximately 1645. Txed with 30gm CHO, increased to 52 within 15 min. Gave additional 15 gm CHO, increased to 71. Ate approximately 50% of dinner with alot of encouragement. Dr. De Anda notified, insulin held per order. Also notified of pulled IV, ordered rocephin to be given IM. Also notified of oozing, will continue heparin as ordered. Sitting in bed without s/o distress at this time, requesting HOB to be elevated.
[2020-10-20 20:12] VITALS: BP 144/63
--- NOTE | 2020-10-21 05:20 | NUR ---
ASSUMED CARE OF PT AT 1900HRS. PT AOX1 AND IS EXTREMELY KNIK. FALL PRECAUTION IN PLACE. PT CAN BE CONFUSED. SUPRAPUBIC CATH IN PLACE. PT DOES NOT HAVE AN IV AND MAY REQUIRE IR FOR IV ACCESS. WOUND CARE COMPLETED ORDERED. ASSESSMENT CHARTED. VSS AND NO S/S OF ACUTE DISTRESS. WILL CONTINUE TO MONITOR.
[2020-10-21 07:54] VITALS: BP 146/72
[2020-10-21 10:02] LABS: CALCIUM 8.2 mg/dL (8.5-10.1); CREATININE 2.2 mg/dL (0.6-1.0); MAGNESIUM 1.7 mg/dL (1.8-2.4); POTASSIUM 4.9 mmol/L (3.5-5.1)
--- NOTE | 2020-10-21 15:10 | NUR ---
LABILE MOOD THIS SHIFT-INITALLY THIS AM ALMOST GIDDY-HYPERVERBAL WHEN SPEAKING ABOUT "LEAVING HERE THIS AFTERNOON-HE TOLD ME SO" LATER IN SHIFT AT APPROX 1230 ATTEMPTING TO GET OUT OF BED TRIGGERING BED ALARM STATING SHE WAS "GETTING MY SHOES SO I CAN LEAVE" LOUDLY TEARFUL WHEN EXPLAINED THERE WAS NO ORDER TO DC TODAY "I HATE IT I HATE MYSELF"DID RESPOND TO SUPPORT REASSURANCE FROM NURSING STAFF AND INDIVIDUAL RIME/ATTENTION. APPETITE FAIR. CATHETOR DRAING LIGHT YELLOW URINE-MULTIPLE REQUESTS FOR WATER BUT UPSET WHEN GIVEN NECTER THICKENED, VORCO 5/325 PO PRN FOR BACK PAIN RATED A 6 ON 1-10 SCALE,
--- NOTE | 2020-10-21 16:14 | NUR ---
Case discussed in unit rounds and updated called to the [facility] [phone]. They can accept the pt when medical stable for return to ltc there. Pt noted to have increased aggitation and pulled out her ivx2 and rae. Pt going to IR for access today. Labs being monitored. Pt with elev K+. Possible dc over the holiday weekend. Will follow.
[2020-10-21 19:48] VITALS: BP 172/90
--- NOTE | 2020-10-21 20:47 | NUR ---
Primary RADHA Cullen asked helped re: IV access and IV dextose order from this AM. Pt with order from Dr Valerio this AM for IV Dextrose- pt does not have an IV access, IV nurse tried already and pt requiring IR assisted midline or PICC line insertion. Dr Ibarra informed re: this, he talked to Dr Valerio as well. Stat orders for repeat BMP, MG done, relayed results to Dr Valerio, he said to disregard AM orders; Dr Ibarra informed re: labs and Dr Valerio's response as well; to observe pt today, repeat labs tomorrow and if WNL for possible discharged- Primary dayshift RADHA Cullen informed and aware re: physicians' response.
--- NOTE | 2020-10-22 05:26 | NUR ---
PATIENT AOX1 FORGETFUL AND CONFUSED. PATIENT ENCOURAGED FLUIDS. PATIENT HAS HEEL PROTECTORS ON. PATIENT HAS A SUPRA PUBIC. PATIENT DENIED PAIN OR DISCOMFORT. PATIENT IN BED ASLEEP AT THIS TIME BREATHING REGULAR AND UNLABOURED.
[2020-10-22 06:42] LABS: ALBUMIN 3.2 g/dL (3.4-5.0); CALCIUM 8.2 mg/dL (8.5-10.1); CREATININE 2.1 mg/dL (0.6-1.0); PHOSPHORUS 4.4 mg/dL (2.5-4.9); POTASSIUM 4.7 mmol/L (3.5-5.1)
[2020-10-22 08:05] VITALS: BP 141/116
[2020-10-22] MEDS ORDERED: TORSEMIDE20 MG PO (14:16)
--- NOTE | 2020-10-22 18:52 | NUR ---
Report given to nurse Kunz, , including BG during the three meals during the day.
--- NOTE | 2020-10-23 12:03 | HC ---
[facility] [place] [address] CONSULTATION Name: SUMI GATICA Room #: 460-P [facility] IN M.R.#: [id number] Admission: 10/18/20 Attend Phys: Rory De Anda Discharge: 10/22/20 Date of : 41 Report #: [id number] THIS REPORT FOR: cc: Benita Gonzalez MD, Ramilo MD Althoff,Anthony Feldman MD ~ DATE OF SERVICE: 10/19/2020 CHIEF COMPLAINT: Lower extremity open ulcerations. HISTORY OF PRESENT ILLNESS: This is a 75-year-old female patient who was admitted to the hospital with encephalopathy and lower extremity venous dermatitis and cracking and oozing of her lower legs. She is unable to provide any information about herself. She does not answer most questions, does make some intermittent eye contact. 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 SOCIAL HISTORY: Negative for alcohol or tobacco use. FAMILY HISTORY: Unknown. MEDICATIONS: Include zinc sulfate, thiamine, cholecalciferol, metoprolol, aspirin, Mirapex, Xalatan, Trusopt, Lipitor, Neurontin, Vimpat, timolol ophthalmic, Lortab. REVIEW OF SYSTEMS: Not obtainable due to the patient's inability to answer questions and underlying encephalopathy. ALLERGIES: FENTANYL, MEPERIDINE, VANCOMYCIN. PHYSICAL EXAMINATION: VITAL SIGNS: At this time include temperature 97.8, pulse 85, respiratory rate 20, blood pressure 122/72. GENERAL: This is a chronically ill-appearing female patient who appears to be in no obvious distress. HEENT: Head normocephalic. Nose and throat are clear. NECK: Supple. LUNGS: Clear. [facility] [address] [place] [address] CONSULTATION Name: SUMI GATICA Room #: 460-[facility] IN ..#: [id number] Admission: 10/18/20 Attend Phys: Rory De Anda Discharge: 10/22/20 Date of : 41 Report #: [id number] HEART: Regular rhythm. ABDOMEN: Soft. EXTREMITIES: Lower extremities demonstrate moderate erythema, scaling and venous dermatitis with some cracking. No overt cellulitic changes noted at this time. LABORATORY STUDIES: Include sodium 137, potassium 5.2, chloride 102, CO2 of 22, BUN 47, creatinine 2.4, glucose 136, albumin is 3.2. White blood cell count 2.8 with hemoglobin of 8.6. CLINICAL IMPRESSION: 1. Venous stasis dermatitis, bilateral lower extremities. 2. Type 2 diabetes mellitus. 3. Underlying encephalopathy. 4. Moderate protein-calorie malnutrition. 5. General debility. RECOMMENDATIONS: At this point in time, we will check an arterial Doppler to evaluate for underlying arterial disease. We will recommend AmLactin lotion to the legs followed by Gabriela. We may add additional compression provided she has adequate arterial flow. We will recommend elevation of the legs for edema control. We will recommend heel protectors at all times. She will need aggressive nutritional support to maximize wound healing and management of her ongoing medical problems including her diabetes by the hospitals. I appreciate being asked to see the patient in consultation. <ELECTRONICALLY SIGNED> By: Anthony Cm MD 10/23/20 1203 1628 0224 Anthony Cm MD /nt
[2020-10-23 13:07] LABS: KAPPA FREE LIGHT CHAINS 41.4 mg/L (3.3-19.4); KAPPA/LAMBDA RATIO 1.2 (0.26-1.65); LAMBDA FREE LIGHT CHAINS 34.6 mg/L (5.7-26.3)
[2020-10-23 17:07] LABS: GLOBULIN TOTAL 2.7 g/dL (2.2-3.9); M-SPIKE Not Observed g/dL (Not Observed)
== END 2020-10-22 20:22 | DRG 871 ==
LOC: ER 00:11 → 3W 02:55 → EROBS 02:55 → 3W 06:24 → 4W 10-19 23:46
PROVIDERS: Emergency Medicine; Hospitalist; Nurse Practitioner Family; ADMIT Hospitalist; ATTEND Hospitalist
DX: A41.9 Sepsis, unspecified organism (principal); G92 Toxic encephalopathy; I50.31 Acute diastolic (congestive) heart failure; J96.00 Acute respiratory failure, unspecified whether with hypoxia or hypercapnia; N17.9 Acute kidney failure, unspecified; N39.0 Urinary tract infection, site not specified; I48.20 Chronic atrial fibrillation, unspecified; I69.354 Hemiplegia and hemiparesis following cerebral infarction affecting left non-dominant side; E44.0 Moderate protein-calorie malnutrition; N18.4 Chronic kidney disease, stage 4 (severe); I13.0 Hypertensive heart and chronic kidney disease with heart failure and stage 1 through stage 4 chronic kidney disease, or unspecified chronic kidney disease; D64.9 Anemia, unspecified; G40.909 Epilepsy, unspecified, not intractable, without status epilepticus; R77.8 Other specified abnormalities of plasma proteins; K59.00 Constipation, unspecified; K21.9 Gastro-esophageal reflux disease without esophagitis; E78.5 Hyperlipidemia, unspecified; I25.10 Atherosclerotic heart disease of native coronary artery without angina pectoris; E11.40 Type 2 diabetes mellitus with diabetic neuropathy, unspecified; E03.9 Hypothyroidism, unspecified; F32.9 Major depressive disorder, single episode, unspecified; J44.9 Chronic obstructive pulmonary disease, unspecified; G25.81 Restless legs syndrome; M06.9 Rheumatoid arthritis, unspecified; F03.90 Unspecified dementia, unspecified severity, without behavioral disturbance, psychotic disturbance, mood disturbance, and anxiety; I87.2 Venous insufficiency (chronic) (peripheral); G89.4 Chronic pain syndrome; N31.9 Neuromuscular dysfunction of bladder, unspecified; F20.9 Schizophrenia, unspecified; E11.22 Type 2 diabetes mellitus with diabetic chronic kidney disease; K21.00 Gastro-esophageal reflux disease with esophagitis, without bleeding; N05.9 Unspecified nephritic syndrome with unspecified morphologic changes; E87.5 Hyperkalemia; Z20.828 Contact with and (suspected) exposure to other viral communicable diseases; Z79.4 Long term (current) use of insulin; Z86.19 Personal history of other infectious and parasitic diseases; Z88.1 Allergy status to other antibiotic agents; Z88.8 Allergy status to other drugs, medicaments and biological substances; Z68.27 Body mass index [BMI] 27.0-27.9, adult; Z86.14 Personal history of Methicillin resistant Staphylococcus aureus infection
CPT/HCPCS: 10047; 10879

== ENCOUNTER 2020-11-18 11:23 | Inpatient (IN) | payer OTHER ==
[~2020-11-18] VITALS: Ht 157.5 cm; Wt 88.5 kg
--- NOTE | ~2020-11-18 | HC ---
[facility] [place] [address] CONSULTATION Name: SUMI GATICA Room #: 452-P ADM IN M.R.#: [id number] Admission: 11/18/20 Attend Phys: Ashanti Nixon MD Discharge: Date of : 41 Report #: [id number] THIS REPORT FOR: cc: Benita Gonzalez MD, Ramilo MD McElhinney, Christian C. MD ~ DATE OF SERVICE: 11/19/2020 HISTORY OF PRESENT ILLNESS: The patient is a 75-year-old female with anemia. The patient is a fairly good historian. She has multiple medical problems including chronic renal insufficiency, diabetes, hypertension, history of AFib. She was on aspirin on admission. She has a history of COVID pneumonia in May of this year. The patient was admitted with cellulitis as well as anasarca. She does complain of lower extremity pain. She denies any obvious bright red blood per rectum or melena. She is unsure when her last colonoscopy was performed, but this was apparently many years ago. In reviewing her chart in the computer, there is no EGD or colonoscopy seen. In reviewing past medical history; however, there is a history of reflux esophagitis mentioned. She denies any heartburn or dysphagia. No nausea or vomiting at this time. No abdominal pain. On her medications, there is no PPI therapy listed on admission. The patient's hemoglobin was 7.1 and this has dropped to 6.3. She denies any fevers or chills currently. No chest pain or shortness of breath currently. PAST MEDICAL HISTORY: Chronic renal insufficiency, hypertension, coronary artery disease, diabetes, previous history of COVID pneumonia, hyperlipidemia, hypothyroidism, peripheral neuropathy, history of AFib, possible history of reflux esophagitis, history of anemia, congestive heart failure, constipation, dysfunctional bladder, previous history of suprapubic catheter, depression, rheumatoid arthritis, history of urinary tract infections. ALLERGIES: VANCOMYCIN, FENTANYL, MEPERIDINE. SOCIAL HISTORY: She denies any tobacco or alcohol use. REVIEW OF SYSTEMS: As per HPI. FAMILY HISTORY: Negative for colon cancer. PHYSICAL EXAMINATION: VITAL SIGNS: Temperature is 98.7, pulse 84, blood pressure 129/48, respiratory rate is 18. GENERAL: She is oriented to time and place. She is in no acute distress. HEENT: Sclerae nonicteric. Oropharynx clear. NECK: Supple, without lymphadenopathy. [address] [address] CONSULTATION Name: SUMI GATICA Room #: 452-P [facility] IN M.R.#: [id number] Admission: 11/18/20 Attend Phys: Ashanti Nixon MD Discharge: Date of : 41 Report #: [id number] CARDIOVASCULAR: Regular rate. CHEST: Clear to auscultation anteriorly bilaterally. ABDOMEN: Soft, obese, nontender, nondistended, positive bowel sounds. EXTREMITIES: Evidence of cellulitis involving the lower extremities bilaterally with +1 pitting edema. LABORATORY DATA: Sodium 134, potassium 5.0, chloride 102, bicarbonate 19, BUN 63, creatinine 1.8, glucose 152, AST 37, lipase 145, total bilirubin 0.7, alkaline phosphatase 85, ALT 27, total protein 5.9, albumin 3.1. BNP is 9934. Iron 28, TIBC is 312, percent sat is 9. WBC is 3.6, hemoglobin 6.3, this is down from 7.1. On 10/19/2020, she was at 8.6. She has been in the 7-8-9 range throughout the course of 2019, MCV is 93.0, platelet count is 53,000. DIAGNOSTIC DATA: Ultrasound of the abdomen today shows a large liver with fatty infiltration. Previous cholecystectomy changes noted. The region of the common bile duct is obscured. No intrahepatic findings of biliary obstruction. ASSESSMENT AND PLAN: Anemia. The patient does have a history of anemia, also with renal insufficiency, which may be contributing. There is no obvious history of GI bleed per the patient. We would recommend Hemoccult testing stools next. If she did have a drop in her hemoglobin, may need to consider transfusion. She has been cross-matched, her last transfusion was 10/05/2020 of this year. It is unclear when she has had her last colonoscopy or upper endoscopy in the past. We will need to obtain further history. The patient was on aspirin apparently on admission. Agree with PPI therapy, which has been started. We will continue to monitor hemoglobin closely. Thank you for allowing me to participate in her care. By: 1421 38 Bryant Lee MD /nt
[~2020-11-18 11:23] MED LIST changes: +HEPARIN SO5000 UNIT2 SUBQ; +HYDROCODON-ACE1 EAC7 PO; +TIMOLOL MALEATE5 M2 OPHTHALMIC; +TORSEMIDE20 MG PO; +VITAMIN C500 M2 PO
[2020-11-18 11:26] VITALS: BP 137/35
[2020-11-18 12:50] LABS: URINE BILIRUBIN NEGATIVE (Negative); URINE BLOOD 3+ (Negative); URINE CLARITY SL CLOUDY; URINE COLOR YELLOW; URINE GLUCOSE-RANDOM* NEGATIVE (Negative); URINE KETONES NEGATIVE (Negative); URINE PROTEIN (DIPSTICK) 2+ (Negative); URINE UROBILINOGEN 0.2 E.U./dl (0.2-1.0)
[2020-11-18 12:51] LABS: URINE LEUKOCYTES-REFLEX 2+ (Negative); URINE NITRITE-REFLEX POSITIVE (Negative)
[2020-11-18 13:08] LABS: CASTS None Seen /LPF (None Seen); CRYSTALS None Seen /LPF (None Seen); SQUAMOUS 0-3 Few /LPF (0-3); URINE RBC 3-10 Few /HPF (0-2); URINE WBC-REFLEX 6-15 Few /HPF (0-5)
[2020-11-18 13:09] LABS: BACTERIA-REFLEX 1-9 Few /HPF (None Seen); YEAST-REFLEX Present (None Seen)
[2020-11-18 13:29] LABS: HEMATOCRIT 23.1 % (37.0-47.0); HEMOGLOBIN 7.1 gm/dL (12.0-15.0); MCH 27.6 pg (26.0-34.0); MCHC 30.8 g/dL (28.0-37.0); MCV 89.6 fL (80.0-100.0); RBC 2.58 mil/uL (4.20-5.00); RDW 22.9 % (10.5-14.5); WBC 3.8 thou/uL (4.0-11.0)
[2020-11-18 13:41] LABS: ANION GAP 12 mmol/L (7-16); BUN 61 mg/dL (7-18); CALCIUM 8.1 mg/dL (8.5-10.1); CHLORIDE 99 mmol/L (98-107); CO2 24 mmol/L (21-32); CREATININE 1.8 mg/dL (0.6-1.0); GLUCOSE 146 mg/dL (74-106); POTASSIUM 4.8 mmol/L (3.5-5.1); SODIUM 135 mmol/L (136-145)
[2020-11-18 13:43] LABS: ALBUMIN 3.1 g/dL (3.4-5.0); DIRECT BILIRUBIN 0.3 mg/dL (<0.1-0.2); TOTAL BILIRUBIN 0.7 mg/dL (0.2-1.0); TOTAL PROTEIN 5.9 g/dL (6.4-8.2)
[2020-11-18 13:50] LABS: TROPONIN-I <0.06 ng/mL (<0.06)
[2020-11-18 14:26] LABS: ABSOLUTE NEUTROPHILS 2.1 thou/uL (1.4-8.2)
[2020-11-18 14:27] LABS: ANISOCYTOSIS 2+; POLYCHROMASIA OCCASIONAL
[2020-11-18 14:28] LABS: LARGE PLATELETS RARE; PLATELET COUNT 57 thou/uL (150-400)
[2020-11-18 16:11] VITALS: BP 137/35
[2020-11-18 16:42] VITALS: BP 136/42
[2020-11-18 16:48] LABS: % SATURATION 9 % (20-39); IRON 28 ug/dL (50-170); TIBC 312 ug/dL (250-450)
--- NOTE | 2020-11-18 18:12 | NUR ---
ASSUMED CARE OF PT ON ARRIVAL TO UNIT. PT ARRIVED WITH IJ DRESSING SATURATED IN BLOOD, BLOOD LEAKING FROM IV SITE. HELD PRESSURE FOR APPROX 15 MIN TO STOP BLEEDING. NEW DRESSING IN PLACE. PT AOX2 COMPLAINS OF BACK PAIN - HYDROCODONE GIVEN. WOUND CARE PHYSICIAN SEEING PATIENT NOW. VITALS STABLE. ON ROOM AIR. GENERALIZED EDEMA W/ CELLULITIS NOTED. WAITING ON ORDERS. WCM.
[2020-11-18 19:24] VITALS: BP 137/50
--- NOTE | 2020-11-18 23:56 | NUR ---
PT REPORT CALLED TO BRYCE GARCIA ON 4W AT THIS TIME.
[2020-11-19 00:41] VITALS: BP 125/49
--- NOTE | 2020-11-19 02:47 | NUR ---
PT TRANSFERED FROM 3 AFTER BEING CLEARED OF COVID ISOLATION.PT WAS POSITIVE FOR COVID BUT NOW TEST NEGATIVE.PT IS A/O X3.PT IS ON BEDREST.PT HAS BLE CELLULITIS AND GENERAL BODY EDEMA.PT IS ON ROOM AIR AND AFIB ON CLOTH PAINTER.PT HAS A SUPRAPUBIC CATHETER IN PLACE.NO IV ACCESS .NEEDS IV FROM IV TEAM LATER IN THE DAY.PT IS VERY [place] WITH NO AIDS.WILL CONTINUE TO MONITOR PER POC
[2020-11-19 05:53] LABS: WBC 3.6 thou/uL (4.0-11.0)
[2020-11-19 05:55] LABS: HEMATOCRIT 20.6 % (37.0-47.0); MCH 28.5 pg (26.0-34.0); MCHC 30.7 g/dL (28.0-37.0); PLATELET COUNT 53 thou/uL (150-400); RBC 2.21 mil/uL (4.20-5.00); RDW 23.3 % (10.5-14.5)
[2020-11-19 05:59] LABS: HEMOGLOBIN 6.3 gm/dL (12.0-15.0)
[2020-11-19 06:06] LABS: CALCIUM 7.8 mg/dL (8.5-10.1); CREATININE 1.8 mg/dL (0.6-1.0); MAGNESIUM 1.9 mg/dL (1.8-2.4)
--- NOTE | 2020-11-19 07:18 | EKG ---
[address] [address] ELECTROCARDIOGRAM REPORT Name: SUMI GATICA Room #: 452-P ADM IN M.R.#: [id number] Admission: 11/18/20 Attend Phys: Ashanti Nixon MD Discharge: Date of : 41 Report #: [id number] [facility] ED Test Date: 2020-11-18 Test Time: 12:12:41 Pat Name: SUMI GATICA Department: Room: 45 Gender: F Brick Pitcher: chiquita : 1945 Requested By: Fritz Schultz Order Number: [id number] MD: Miguelito Holly Measurements Intervals [place] Rate: 80 P: MD: QRS: 97 QRSD: 105 T: -59 QT: 399 QTc: 461 Interpretive Statements Atrial fibrillation Low voltage, extremity and precordial leads Compared to ECG 10/18/2020 01:01:21 Prolonged QT interval no longer present Electronically Signed On 11-19-2020 7:18:18 RESUME WRITER by Miguelito Holly [email or web address] <ELECTRONICALLY SIGNED> By: Miguelito Holly MD, [facility] 11/19/20 0718 11 11 Miguelito Holly MD, FACC /EPI
--- NOTE | 2020-11-19 07:42 | HC ---
[facility] [place] [address] [place] [address] CONSULTATION Name: SUMI GATICA Room #: 452- ADM IN M.R.#: [id number] Admission: 11/18/20 Attend Phys: Ashanti Nixon MD Discharge: Date of : 41 Report #: [id number] THIS REPORT FOR: cc: Benita Gonzalez MD, Ramilo MD Barry,Landon Henderson MD ~ DATE OF SERVICE: 11/18/2020 INFECTIOUS DISEASE CONSULTATION ATTENDING PHYSICIAN: Dr. Nixon. REASON FOR EVALUATION: Complicated urinary tract infection. HISTORY OF PRESENT ILLNESS: Chart reviewed, patient examined. This is a 75-year-old woman with extensive medical history including diabetes mellitus type 2, also has dementia, who was referred from the facility to the Emergency Room due to abnormal labs and generalized edema. She is unable to give any specific details other than she is swollen, not clear that she has had fevers or chills. She has maintained on room air. Did admit to previous abdominal-related complaints, although she states these have resolved. It is notable that she was hospitalized at this facility in early September with a diagnosis of COVID-19 infection. Followup chest x-ray showed no acute process. She is empirically started on ceftriaxone. Cultures of the blood and urine have been collected. ALLERGIES: LISTED TO FENTANYL, MEPERIDINE, VANCOMYCIN. CURRENT MEDICATIONS: Include furosemide, insulin lispro, pantoprazole, hydrocodone, acetaminophen, ondansetron, was given a dose of ceftriaxone and fluconazole as well. PAST MEDICAL HISTORY: Includes diabetes mellitus type 2 complicated by vasculopathy, has coronary artery disease, chronic renal insufficiency. Does have cardiomyopathy with congestive heart failure, atrial fibrillation, hypertension, chronic pain syndrome, hyperlipidemia, hypothyroidism, seizure disorders, vascular dementia, rheumatoid arthritis, COPD, anemia, left-sided weakness, previous cerebral infarction, schizophrenia. SOCIAL HISTORY: Nonsmoker, no ethanol, no illicit drug use. FAMILY HISTORY: Noncontributory. REVIEW OF SYSTEMS: Otherwise, unremarkable. Really not reliably obtained. [facility] [address] [place] [address] CONSULTATION Name: SUMI GATICA Room #: 452-[facility] IN .R.#: [id number] Admission: 11/18/20 Attend Phys: Ashanti Nixon MD Discharge: Date of : 41 Report #: [id number] PHYSICAL EXAMINATION: GENERAL: She appears chronically ill, undernourished. She is actually conversant and her speech is nonsensical. Appears to be chronically ill, undernourished. She has had some generalized edema, moderate distress. VITAL SIGNS: Temperature 97.6, pulse 72, respirations 14, blood pressure 137/35. SKIN: Warm, dry, no rashes. HEENT: Normocephalic. Extraocular muscles intact. NECK: Supple. LUNGS: Diminished breath sounds. Few scattered crackles. HEART: Regular, distant. I do not appreciate any murmur. ABDOMEN: Obese, distended, soft, nontender. EXTREMITIES: Generalized edema of the extremities including both upper and lower. Does have inflammatory erythrodermic type eruptions involving her lower extremities. Suspect underlying venous stasis insufficiency with dermatitis. I cannot entirely exclude a cellulitic process. There are some excoriations. GENITOURINARY AND RECTAL: Deferred. LABORATORY DATA: CBC: White count 3.8, H and H 7.1 and 23.1, platelets of 57. BNP elevated at 9900. TSH is elevated at 33.992. Electrolytes: Sodium 135, potassium 4.8, chloride 99, bicarbonate is 24, anion gap of 12, BUN and creatinine 61 and 1.8, estimated GFR of 27. COVID testing was negative. Hepatic function was generally unremarkable. Albumin of 3.1, total protein of 5.9. Influenza antigen was negative. Urinalysis showed 6-15 white cells, evidence of yeast. Cultures pending. Chest x-ray, no acute process. ASSESSMENT: Progressive encephalopathy, generalized edema, likely multifactorial with underlying issues of diabetes mellitus complicated by diffuse vasculopathy, suspect she has underlying complicated urinary tract infection. We will initiate therapy including antibacterial antifungal adjusted for her renal dysfunction. Also has underlying hypothyroidism that would be contributing as well, I believe certainly warrant replacement. Pancytopenia, again it is not entirely clear, see if it corrects with improved overall clinical picture. If not, may need additional evaluation including Hematology/Oncology and perhaps bone marrow test. We will add incentive spirometry. It is not entirely clear if she is able to do that, but certainly at risk for additional complications. We will check arterial Dopplers of lower extremities to exclude that and consider compression, which she may benefit. <ELECTRONICALLY SIGNED> By: Landon Hernandez MD 11/19/20 0742 1648 29 Landon Hernandez MD /nt
[2020-11-19 08:16] VITALS: BP 129/48
--- NOTE | 2020-11-19 10:03 | 2DMMODE ---
[facility] [place] [address] 2 D/M-MODE ECHOCARDIOGRAM Name: SUMI GATICA Room #: 452-P ADM IN M.R.#: [id number] Admission: 11/18/20 Attend Phys: Ashanti Nixon MD Discharge: Date of : 41 Report #: [id number] THIS REPORT FOR: cc: Benita Gonzalez MD, Ramilo MD Santiago, Patrick MD [facility] ~ APPROVED REPORT Study performed: 11/19/2020 09:21:59 EXAM: Comprehensive 2D, Doppler, and color-flow Echocardiogram Patient Location: Bedside Room #: 452 Status: routine BSA: 1.89 HR: 82 bpm BP: 125/49 mmHg Rhythm: Atrial Fibrillation Other Information Study Quality: Adequate Indications Bilateral leg edema. Hx: COVID-19, Afib, CAD, CHF, COPD, HTN, DM. 2D Dimensions RVDd: 40.95 mm IVSd: 12.00 (7-11mm) LVOT Diam: 19.00 (18-24mm) LVDd: 44.00 mm PWd: 12.00 (7-11mm) Ascending Ao: 28.46 (22-36mm) LVDs: 33.68 (25-40mm) Aortic Root: 31.66 mm Volumes Left Atrial Volume (Systole) Single Plane 4CH: 57.34 mL Single Plane 2CH: 52.54 mL LA ESV Index: 31.00 mL/m2 Aortic Valve AoV Peak Kaiser.: 1.37 m/s AO Peak Gr.: 7.56 mmHg LVOT Max P.83 mmHg LVOT Max V: 0.84 m/s NICOLE Vmax: 1.71 cm2 [facility] [address] [place] [address] 2 D/M-MODE ECHOCARDIOGRAM Name: SUMI GATICA Room #: 452-P [facility] IN [facility].#: [id number] Admission: 11/18/20 Attend Phys: Kacie Verde Discharge: Date of : 41 Report #: [id number] Mitral Valve MV Decel. Time: 151.05 ms MV E Max Kaiser.: 1.46 m/s Pulmonary Valve PV Peak Kaiser.: 0.64 m/s PV Peak Gr.: 1.62 mmHg Tricuspid Valve TR Peak Kaiser.: 2.98 m/s TR Peak Gr.: 36.00 mmHg Left Ventricle The left ventricle is normal size. Mild concentric left ventricular hypertrophy. Left ventricular systolic function is normal. LVEF is 55%. This study is not technically sufficient to allow evaluation of the LV diastolic function due to atrial fibrillation. Right Ventricle Right ventricle is mildly dilated. Right ventricle is mildly hypokinetic. Atria Mild atrial enlargement. Aortic Valve The aortic valve is normal in structure. Moderately sclerotic leaflets. Trace aortic regurgitation. There is no aortic valvular stenosis. Mitral Valve The mitral valve is normal in structure. Leaflets are thickened and calcified. Moderate mitral annular calcification. Trace mitral regurgitation. No evidence of mitral valve stenosis. Tricuspid Valve The tricuspid valve is normal in structure. Severe tricuspid regurgitation. Estimated PAP is 36mmHg plus the right atrial pressure. Pulmonic Valve The pulmonary valve is normal in structure. Trace pulmonic regurgitation. Great Vessels The aortic root is normal in size. The ascending aorta is normal in [facility] [address] [place] [address] 2 D/M-MODE ECHOCARDIOGRAM Name: ENSUMI Room #: 452[facility] IN M.R.#: [id number] Admission: 11/18/20 Attend Phys: Kacie Verde Discharge: Date of : 41 Report #: [id number] size. IVC is not well visualized. Pericardium There is no pericardial effusion. <Conclusion> Normal left ventricular size Mild concentric hypertrophy EF 55% Right ventricle mildly enlarged/mild hypokineses Color-flow Doppler study of the aortic/mitral/tricuspid/pulmonary valve performed. Mild left atrial enlargement Mild aortic valve calcification, no evidence of stenosis or insufficiency Trace mitral valve insufficiency Severe tricuspid valve insufficiency PA pressure estimated 36 mmHg No pericardial effusion <ELECTRONICALLY SIGNED> By: Miguelito Holly MD, [facility] 11/19/20 1003 02 1003 Miguelito Holly MD, FACC /INF
--- NOTE | 2020-11-19 10:21 | NUR ---
Patient come to the hospital from [facility] for treatment of current UTI, AMS, Pancytopenia with notable HgB of 6.3 this AM, IDDM and history of seizures. Corresponded with attending who will review and treat and notify CM of anticipated ability to discharge back to [facility] . Note Liaison phone number for [facility] is [phone].
[2020-11-19 10:43] LABS: ABSOLUTE NEUTROPHILS 1.2 thou/uL (1.4-8.2); ATYPICAL LYMPHS 5 %; METAMYELOCYTES 1 %; NUCLEATED RBCS 2 /100WBC
[2020-11-19 10:46] LABS: ANISOCYTOSIS 3+; MACROCYTES 1+; MICROCYTES 1+; POLYCHROMASIA OCCASIONAL
[2020-11-19 10:47] LABS: OVALOCYTES FEW
[2020-11-19 10:48] LABS: SCHISTOCYTES OCCASIONAL
--- NOTE | 2020-11-19 12:05 | NUR ---
VASCULAR ACCESS CONSULTED FOR ML.PT'S LABS,MEDS,HX REVIEWED. BILATERAL ARMS EDEMATOUS,BRUISED AND RED. RIGHT ARM LESS EDEMA. ATTEMPTED MILES BRACHIAL, UNSUCCESSFUL THEN DID MILES CEPHALIC. 4FR POWER MIDLINE TRIMMED TO 11CM INSERTED TO 0CM. BRISK BR. PT TOLERATED WELL. ML RELEASED FOR IMMEDIATE USE PER PROTOCOL TO HECTOR GARCIA
--- NOTE | 2020-11-19 14:03 | NUR ---
Jos Bland is the patients identified friend and contact at [phone] whom I spoke with and notified of current status and gave number of nurses station and updated on current admission.
[2020-11-19 14:55] VITALS: BP 123/42
[2020-11-19 15:21] VITALS: BP 137/55; BP 138/41
--- NOTE | 2020-11-19 18:43 | NUR ---
PT IS AOX3, WITH FORGETFULNESS, PT CAN BE FUSSY/YELLING OUT AT TIMES. PT CAN BE REDIRECTED, NO IV ACCESS WHEN TOOK OVER CARE. IV TEAM CALLED AND MIDLINE WAS PLACED ON RIGHT FOREARM. PT RECEIVED 1 UNIT RPBC, NO S/S OF REACTION. PERRIN CATHETER IS PATENT. FALL PRECAUTIONS IN PLACE, TURNED Q 2HRS, CALL LIGHT IN REACH. WILL CONTINUE TO MONITOR.
[2020-11-19 19:38] VITALS: BP 137/55
[2020-11-20 05:52] LABS: HEMATOCRIT 25.3 % (37.0-47.0); HEMOGLOBIN 7.9 gm/dL (12.0-15.0)
[2020-11-20 07:17] VITALS: BP 125/53
--- NOTE | 2020-11-20 07:48 | NUR ---
Assumed pt care at 1900. A/OX3 with forgetfulness noted. C/o back/BLE pain 08/06. Order for Morphine 2mg obtained from [facility] and effective. Pt has generalized edema allover with weeping on BUE,redness on BLE. Pt's NPO as ordered. Suprapubic catheter in place. Midline in place RUE patent with blood return. Fall precautions in place.
[2020-11-20 08:35] LABS: CALCIUM 8.4 mg/dL (8.5-10.1); CREATININE 1.7 mg/dL (0.6-1.0); POTASSIUM 4.9 mmol/L (3.5-5.1)
--- NOTE | 2020-11-20 10:52 | NUR ---
ASSUMED PT CARE THIS AM. PT VSS, A&OX3. PT ASSESSED THIS AM, REPORTS NO PAIN AT THIS TIME. WILL RECHECK PAIN LEVEL FREQUENTLY THROUGHOUT SHIFT. URINARY CATHETER PATENT. PICC LINE PATENT, MEDS INFUSING WELL AND DRAWS BLOOD. WOUNDS OPEN TO AIR ORDERED. PT HARD OF HEARING, BUT MAKES NEEDS KNOWN TO STAFF. DIET SWITCHED TO CLEAR LIQUIDS PER DR ORDERS. PT ON TELE.
[2020-11-20 15:43] VITALS: BP 132/44
[2020-11-20 19:35] VITALS: BP 116/35
--- NOTE | 2020-11-21 04:03 | NUR ---
ASSUMED CARE OF PT AT 1900HRS. PT AOX2-3 AND LETS NEEDS BE KNOWN. FALL PRECAUTION IN PLACE. PT REPORTED SOME PAIN AND ITCHING. PRNS GIVEN. PT RAN AFIB ON TELE. SUPRAPUBIC CATH IN PLACE AND PATIENT. ABX TREATMENT CONTINUED. PT WAS ABLE TO GET COMFORTABLE AND SLEEP PART OF THE SHIFT. VSS AND NO S/S OF ACUTE DISTRESS. WILL CONTINUE TO MONITOR.
[2020-11-21 07:28] VITALS: BP 142/68
--- NOTE | 2020-11-21 10:14 | NUR ---
ASSUMED PT CARE THIS AM. PT VSS, A&OX2. PT RESTING AT THIS TIME. REFUSED AM MEDS, IV MEDS WERE HUNG WITHOUT COMPLAINT. IV PATENT, MEDS INFUSING. SUPRAPUBIC CATHETER PATENT. PT BEING REPOSITIONED. BLOOD SUGAR BEING MONITORED. PT ON TELE.
[2020-11-21 10:59] LABS: WBC 2.3 thou/uL (4.0-11.0)
[2020-11-21 11:01] LABS: HEMATOCRIT 22.3 % (37.0-47.0); MCH 28.5 pg (26.0-34.0); MCHC 31.3 g/dL (28.0-37.0); MCV 91.1 fL (80.0-100.0); RBC 2.44 mil/uL (4.20-5.00); RDW 21.7 % (10.5-14.5)
[2020-11-21 11:09] LABS: CREATININE 1.8 mg/dL (0.6-1.0)
[2020-11-21 11:10] LABS: POTASSIUM 5.4 mmol/L (3.5-5.1)
[2020-11-21 15:10] VITALS: BP 133/46
[2020-11-21 15:55] LABS: ABSOLUTE RETIC COUNT 0.1089 10^6/uL; OBSERVED RETIC COUNT 4.32 % (0.6-2.6)
[2020-11-21 16:10] LABS: APTT 43.1 Seconds (24.5-32.8); INR 1.3; PROTIME 13.3 Seconds (9.3-11.4)
[2020-11-21 20:00] VITALS: BP 118/65
--- NOTE | 2020-11-22 04:48 | NUR ---
PROGRESS PT A/O X3 TO 4 VERY VOCAL IN EXPRESSING PAIN. FEARFUL OF BEING ALONE CRIES FOR STAFF TO STAY. FREQUENT ROUNDS WITH ASSURANCE SHE IS NOT ALONE. PT RATING PAIN A 6 TO 8 TAKING HYDROCODONE SPARINGLY SLEPT WELL AFTER. BILATERAL CALVES LEDD EDEMATOUS AND SKIN LESS RED OLD SKIN SLOUGHING OFF SLOWLY. PT REPOSITIONED NEEDED HEELS FLOATED. IV TO RIGHT UPPER ARM MIDLINE WITH GOOD BLOOD RETURN FLUIDS INFUSING WITHOUT DIFFICULTY CONTINUE POC.
[2020-11-22 06:45] LABS: WBC 2.4 thou/uL (4.0-11.0)
[2020-11-22 06:46] LABS: HEMATOCRIT 22.1 % (37.0-47.0); HEMOGLOBIN 6.8 gm/dL (12.0-15.0); MCH 28.2 pg (26.0-34.0); MCV 90.9 fL (80.0-100.0); PLATELET COUNT 30 thou/uL (150-400); RBC 2.43 mil/uL (4.20-5.00); RDW 22.4 % (10.5-14.5)
--- NOTE | 2020-11-22 07:07 | HC ---
[facility] [place] [address] [place] [address] CONSULTATION Name: SUMI GATICA Room #: 452-P ADM IN M.R.#: [id number] Admission: 11/18/20 Attend Phys: Ashanti Nixon MD Discharge: Date of : 41 Report #: [id number] THIS REPORT FOR: cc: Benita Gonzalez MD, Ramilo MD McKittrick,Deyvi Rodríguez MD ~ REQUESTING PHYSICIAN: Ashanti Nixon MD. REASON FOR CONSULTATION: Pancytopenia. HISTORY OF PRESENT ILLNESS: The patient is a 75-year-old female for long-term care facility, who was admitted for altered mentation and worsening anasarca. We are consulted because of her pancytopenia. The patient really has minimal to no understanding or knowledge of this. She is a difficult historian and fairly unreliable would be my assessment at least at this current point in time. Hematologically, she was admitted, her white count is 2.3, two days ago was 3.6. She usually runs for the last several months in the mid 3-4 range. Her hemoglobin on admission was 7.1, was 6.3 yesterday, 7.9 after a unit of blood and today 7. During the last several months, she has been in the ____ range. There is only twice that she has been above 10 in the last 4 years in the computer. Her MCV during this time has been stable around 91. Platelet count which was around 220,000 this summer in May was between 111 and 90,000 or so in September, on this admission was 57 and 53, then 32 today. There were differentials notable for a few atypical lymphocytes 5% and also metamyelocytes on today's blood work. No previous labs at ____ ANC today is 1.2 thousand. Normally, she runs between 3 and 4.5 under absolute neutrophils. Notable lab also includes that her creatinine has been 1.8 range for probably 4 years at least when at the hospital. Liver functions have been normal. Glucose has been elevated around 209. Total bilirubin normal at 0.7. Transaminases normal. Albumin 3.1. Iron level recently 28, which is low percent; iron saturation 9, which is down from 14 in April; TIBC 312. Coags not drawn this admit, but will be drawn. Serum protein electrophoresis back in 09/2020 was without monoclonal protein. TSH this admission elevated at 33.992. Ferritin normal range 138. Folate low at 7.8. Vitamin B12 elevated at 1923. Random cortisol is pending. UA on admission is positive for nitrite, 2+ protein, 3+ blood, 2+ leukocytes. Micro at this time had grown E. coli and Enterococcus faecalis, both from her urine. Note that she has a suprapubic catheter. Imaging this admit and recent include CT abdomen in September that showed mildly enlarged liver, spleen had granulomas, left ovarian cyst, anasarca. This admit, she has had an ultrasound venous lower extremity Doppler not showing any blood clots. Ultrasound of the abdomen has an enlarged liver at 18.7 cm, echogenicity suggesting fatty infiltration, spleen measuring 4 x 4.7 x 9.1 cm, pancreatic tail obscured by gas, no ascites or effusions. Ultrasound arterial lower extremity showed no new process or focal significant stenosis. [facility] [address] [place] [address] CONSULTATION Name: SUMI GATICA Room #: 452-P ADM IN M.R.#: [id number] Admission: 11/18/20 Attend Phys: Ashanti Nixon MD Discharge: Date of : 41 Report #: [id number] MEDICATIONS: At this time in review, current medications include bisacodyl that I wrote for top of the bowels, Benadryl p.r.n., Zosyn 3.375 q. 8, salt poor albumin q. 8 IV, atorvastatin 10 mg at bedtime, latanoprost drops at bedtime, morphine p.r.n., timolol eyedrops b.i.d., lacosamide 100 mg b.i.d., metoprolol 25 b.i.d., gabapentin 200 b.i.d., fluconazole q. 24 IV, levothyroxine 125 mcg daily, furosemide 40 b.i.d. IV, insulin on a sliding scale, ammonium lactate topically, pantoprazole b.i.d., hydrocodone p.r.n., Zofran p.r.n., iron sucrose that I just wrote for. PHYSICAL EXAMINATION: VITAL SIGNS: Recent height is 5 feet 2 inches which is 157.5 cm, weight 195 pounds or 88.4 kilograms. Recent blood pressure 142/68, respirations 20, pulse 69, temperature 97.6. MOOD: The patient is hard to wake up, very slow to answer, not sure if she is fully awake and I think she still cognitively impaired or altered mental status. LUNGS: Mostly clear anterior. No definite rhonchi or wheezes. HEART: Regular rate. LYMPHATICS: No enlarged lymph nodes in the supraclavicular or cervical region. ABDOMEN: Obese. No masses. Does have definite anasarca up to about the level of the umbilicus, same in the extremities. HEMATOLOGIC: No bleeding from the mouth or from the nose. FAMILY HISTORY: Unobtainable and noncontributory. SOCIAL HISTORY: Resident at nursing facility. I do not believe she has been a recent smoker, drinker or user of street drugs. ASSESSMENT AND PLAN: 1. Pancytopenia, may be components of iron deficiency as well as early urosepsis. If it does not improve with iron infusion and improvement of urinary tract infection, may need to consider the lacosamide. Her anti-seizure medicine could do this. I see new record release in the hospital of her receiving this before May. It is okay to continue at this time, but if her counts did not improve, we may need to consider different anti-seizure medicines or at least find that when she was on it. We will also check erythropoietin and peripheral smear regarding the anemia as she may be underproduction. 2. Urosepsis with 2 different antibiotics with suprapubic catheter. Continue antibiotics per Infectious Disease and management per them. 3. Renal insufficiency, baseline creatinine around 1.8 for at least the last 4 years in the chart. 4. Hypothyroid, on replacement. 5. Atrial fibrillation, management per others. 6. Recent COVID pneumonia, stable per others. 7. Hyperlipidemia, statins. 8. Anasarca. No clear etiology to this doctor. [facility] [address] [place] [address] CONSULTATION Name: SUMI GATICA Room #: 452-P ADM IN M.R.#: [id number] Admission: 11/18/20 Attend Phys: Ashanti Nixon MD Discharge: Date of : 41 Report #: [id number] 9. Diabetes mellitus type 2. Management per others. 10. History of seizure disorder. Continue lacosamide for now though as mentioned above, may need to consider change in medication if counts do not improve with iron and improvement in urinary tract infection. 11. History of schizophrenia, meds per others. 12. Peripheral neuropathy, gabapentin and meds per others. 13. Possible history of coronary artery disease. Defer to others. 14. Neurogenic bladder with suprapubic catheter. Defer management to others. 15. Wounds in legs. Defer management to others. <ELECTRONICALLY SIGNED> By: Deyvi Mckeon MD 11/22/20 0707 [id number] Deyvi Mckeon MD /nt
[2020-11-22 07:29] VITALS: BP 136/52
[2020-11-22 10:15] LABS: ABSOLUTE NEUTROPHILS 0.8 thou/uL (1.4-8.2); ATYPICAL LYMPHS 3 %
[2020-11-22 10:16] LABS: NUCLEATED RBCS 3 /100WBC
[2020-11-22 10:17] LABS: PLATELET ESTIMATE MARKEDLY DECREASED
[2020-11-22 10:20] LABS: ANISOCYTOSIS 3+
[2020-11-22 10:22] LABS: IMMATURE MONONUCLEARS 7 %; OVALOCYTES FEW
[2020-11-22 12:07] VITALS: BP 145/52; BP 152/60
[2020-11-22 17:06] LABS: HEMOGLOBIN 6.9 g/dL (11.1-15.9)
--- NOTE | 2020-11-22 22:20 | NUR ---
ASSUMED CARE OF PT AT 0700. PT IS ALERT AND ORIENTED TO PERSON ONLY. ORDERS FOR BLOOD TRANSFUSION RECEIVED DUE TO HGB 6.8 THIS AM. PT UNABLE TO CONSENT AND NO FAMILY AVAILABLE TO CONSENT, ORDERS OBTAINED FROM DR MIRAMONTES TO TRANSFUSE WITHOUT CONSENT. NO REACTION NOTED DURING TRANSFUSION AND PT MORE ALERT THIS EVENING. PT REPORTED BACK AND NECK PAIN WHICH WAS MANAGED WITH PO MEDICATIONS. PT ABLE TO FEED SELF WHEN ALERT AT DINNER. SUPERPUBIC CATHETER IN PLACE AND DRAINING CLEAR YELLOW URINE, SOME DRAINAGE AROUND THE SITE NOTED THIS AM. PT HAS GENERALIZED PITTING EDEMA AND FRAIL SKIN. PT REFUSED TO SWALLOW PO MEDICATIONS THIS AM AND SPIT THEM OUT. UNABLE TO OBTAIN STOOL SAMPLE THIS SHIFT FOR OCCULT BLOOD. FALL PRECAUTIONS IN PLACE AND NURSING WILL CONTINUE TO MONITOR.
[2020-11-23 07:14] LABS: CALCIUM 9.1 mg/dL (8.5-10.1); CREATININE 1.9 mg/dL (0.6-1.0); POTASSIUM 3.8 mmol/L (3.5-5.1)
[2020-11-23 07:38] VITALS: BP 159/67
[2020-11-23 12:50] LABS: INR 1.4; PROTIME 14.2 Seconds (9.3-11.4)
--- NOTE | 2020-11-23 13:35 | NUR ---
Assumed pt care at 7am.Assessment completed.Vss.Assisted pt with tray setup. Fair appetite.Around 1300,pt midline was bleeding.Rn reinforced it but when it doesn't stopped,iv team notified. Mid line dc'd and replaced with peripheral line.Gi here,order noted.Received call from lab later this afternoon about today's lab.Dr Mejía called and message left.Will continue to monitor.
[2020-11-23 13:47] LABS: HEMATOCRIT 24.7 % (37.0-47.0); HEMOGLOBIN 7.7 gm/dL (12.0-15.0)
--- NOTE | 2020-11-23 14:15 | NUR ---
PT ADMITTED RELATED TO UTI, AMS, COVID PUI, BL CELLULITIS. CM REVEIWED CHART AND SPOKE WITH CARE TEAM. CM TUB MENDER HAD ASSESSED PT AND SPOKE WITH FRIEND. PT RESIDES IN LTC AT [facility]. PLAN IS FOR PT TO RETURN THERE ONCE MEDICALLY STABLE. CM FOLLOWED UP WITH LIAISON CARE TEAM HAD INDICATED THAT PT WILL LIKELY BE MEDICALLY TO DC TOMORROW SATURDAY 11/24. THEY ARE AWARE AND ABLE TO ACCEPT PT. CM TO FOLLOW INDICATED WITH DC PLANNING.
[2020-11-23 16:10] VITALS: BP 117/52
[2020-11-23 20:08] VITALS: BP 133/88
[2020-11-24 06:11] LABS: HEMOGLOBIN 7.2 gm/dL (12.0-15.0)
[2020-11-24 06:15] LABS: HEMATOCRIT 22.7 % (37.0-47.0); MCH 28.9 pg (26.0-34.0); MCHC 31.8 g/dL (28.0-37.0); PLATELET COUNT 25 thou/uL (150-400); RBC 2.49 mil/uL (4.20-5.00); RDW 20.5 % (10.5-14.5)
[2020-11-24 06:21] LABS: CALCIUM 8.9 mg/dL (8.5-10.1); CREATININE 1.9 mg/dL (0.6-1.0); POTASSIUM 3.3 mmol/L (3.5-5.1)
--- NOTE | 2020-11-24 07:21 | NUR ---
PROGRESS IV ANTIBIOTICS ORDERED AM LABS DRAWN, PT HAD A SMALL GREEN COLORED BM C/O PAIN AND HYDROCODONE GIVEN AND BENEDRYL FOR ITCHING PT SLEPT THROUGHT NOC.
[2020-11-24 07:38] VITALS: BP 113/53
--- NOTE | 2020-11-24 08:48 | HC ---
[facility] [place] [place] [address] CONSULTATION Name: SUMI GATICA Room #: 452-P [facility] IN M.R.#: [id number] Admission: 11/18/20 Attend Phys: Ashanti Nixon MD Discharge: Date of : 41 Report #: [id number] THIS REPORT FOR: cc: Benita Gonzalez MD, Ramilo MD Elia,James GAYLE ~ DATE OF SERVICE: 11/23/2020 SUBJECTIVE: The patient is receiving IV iron. She seems confused. She has hearing problems, cannot understand me or nurse. She is very anxious because she does not understand what is going on. Per nurse, she has been calm previously. OBJECTIVE: VITAL SIGNS: Blood pressure 159/76, temperature 98.1, respirations 19. MENTAL STATUS: See above. LYMPH: No lymphadenopathy. LUNGS: The patient is not tachypneic. LABORATORY DATA: White count 2.4, hemoglobin 6.8, platelets 30. ASSESSMENT AND PLAN: 1. Anemia. The patient is getting IV iron per Dr. Mckeon. The patient received 1 unit of packed red blood cells. Hemoglobin was checked before transfusion. We will check H and H. 2. Thrombocytopenia secondary to urosepsis, most likely. <ELECTRONICALLY SIGNED> By: James Bills MD 11/24/20 0848 [id number] [id number] James Bills MD /nt
--- NOTE | 2020-11-24 12:09 | NUR ---
CARE TEAM INDICATED THAT PT IS MEDICALLY STABLE TO DISCHARGE BACK TO [facility] THIS DAY. PT WAS SWITCHED TO [facility]. CHART COPY ORDERED. ORDERS TO BE FAXED ONCE COMPLETED. TRANSPORT TO BE ARRANGED. PT'S FRIEND TO BE NOTIFIED. NURSE TO CALL REPORT TO .
[2020-11-24] MEDS ORDERED: SYNTHROID125 MC1 PO (12:30)
[2020-11-24] MEDS ORDERED: PROTONIX40 M2 PO (12:33)
[2020-11-24] MEDS ORDERED: HUMALOG100 UNIT/1 SUBQ (12:33)
[2020-11-24] MEDS ORDERED: LEVOFLOXACIN250 MG PO (12:34)
--- NOTE | 2020-11-24 13:42 | NUR ---
PT DISCHARGING TODAY TO [facility] SKILLED FAXED DC ORDERS/SUMMARY TO FACILITY SPOKE WITH CHOLO IN ADM SHE RECEIVED ORDERS AND ARRANGED TRANSPORT BY STRETCHER VAN FOR [id number] TODAY. LEFT MSG WITH PT'S FRIEND (DEMARIO) OF DC AND TIME OF TRANSPORT. UNIT NOTIFIED AND CHART COPY PER US.
--- NOTE | 2020-11-24 15:52 | NUR ---
Assumed pt care at 7am.Pt in bed sleeping but arousable.Assessment completed. vss.Assisted pt with feeding at breakfast and lunch.Fair appetite.Dr Walker here,dc order noted.investigation manager arranged for transport.[facility] [place] [facility] dc per stretcher at 1455 in stable condition.
[2020-11-24 16:40] LABS: ABSOLUTE NEUTROPHILS 1.1 thou/uL (1.4-8.2); ANISOCYTOSIS 2+; ATYPICAL LYMPHS 5 %; MYELOCYTES 1 %; NUCLEATED RBCS 1 /100WBC
[2020-11-24 16:41] LABS: OVALOCYTES FEW; POIKILOCYTOSIS SLIGHT
[2020-11-24 16:42] LABS: PLATELET ESTIMATE MARKEDLY DECREASED
== END 2020-11-24 14:54 | DRG 808 ==
LOC: ER 11:23 → EROBS 16:13 → 4W 16:13 → 3W 16:42 → 4W 11-19 00:13
PROVIDERS: Hospitalist; Internal Medicine Hematology & Oncology; Nurse Practitioner; ADMIT Hospitalist; ATTEND Hospitalist
DX: D61.818 Other pancytopenia (principal); G93.41 Metabolic encephalopathy; N39.0 Urinary tract infection, site not specified; I69.351 Hemiplegia and hemiparesis following cerebral infarction affecting right dominant side; L03.116 Cellulitis of left lower limb; L03.115 Cellulitis of right lower limb; E44.0 Moderate protein-calorie malnutrition; I42.9 Cardiomyopathy, unspecified; M31.9 Necrotizing vasculopathy, unspecified; I13.0 Hypertensive heart and chronic kidney disease with heart failure and stage 1 through stage 4 chronic kidney disease, or unspecified chronic kidney disease; E03.9 Hypothyroidism, unspecified; N18.30 Chronic kidney disease, stage 3 unspecified; I50.9 Heart failure, unspecified; K59.00 Constipation, unspecified; E78.5 Hyperlipidemia, unspecified; I25.10 Atherosclerotic heart disease of native coronary artery without angina pectoris; F01.50 Vascular dementia, unspecified severity, without behavioral disturbance, psychotic disturbance, mood disturbance, and anxiety; M06.9 Rheumatoid arthritis, unspecified; G25.81 Restless legs syndrome; J44.9 Chronic obstructive pulmonary disease, unspecified; F32.9 Major depressive disorder, single episode, unspecified; K21.9 Gastro-esophageal reflux disease without esophagitis; E87.70 Fluid overload, unspecified; G40.909 Epilepsy, unspecified, not intractable, without status epilepticus; E11.42 Type 2 diabetes mellitus with diabetic polyneuropathy; I48.0 Paroxysmal atrial fibrillation; I87.8 Other specified disorders of veins; E11.22 Type 2 diabetes mellitus with diabetic chronic kidney disease; G89.4 Chronic pain syndrome; N31.9 Neuromuscular dysfunction of bladder, unspecified; K08.409 Partial loss of teeth, unspecified cause, unspecified class; G47.00 Insomnia, unspecified; R53.81 Other malaise; K76.0 Fatty (change of) liver, not elsewhere classified; E87.5 Hyperkalemia; F20.9 Schizophrenia, unspecified; B96.89 Other specified bacterial agents as the cause of diseases classified elsewhere; Z20.828 Contact with and (suspected) exposure to other viral communicable diseases; B96.20 Unspecified Escherichia coli [E. coli] as the cause of diseases classified elsewhere; L30.8 Other specified dermatitis; I12.9 Hypertensive chronic kidney disease with stage 1 through stage 4 chronic kidney disease, or unspecified chronic kidney disease; Z90.49 Acquired absence of other specified parts of digestive tract; Z86.19 Personal history of other infectious and parasitic diseases; Z86.14 Personal history of Methicillin resistant Staphylococcus aureus infection; Z88.1 Allergy status to other antibiotic agents; Z88.8 Allergy status to other drugs, medicaments and biological substances; Z68.35 Body mass index [BMI] 35.0-35.9, adult; Z90.710 Acquired absence of both cervix and uterus
CPT/HCPCS: 10045; 10879; 27000